=== PATIENT | male | born 1935 | race Caucasian/White ===

== ENCOUNTER 2017-05-01 16:28 | Inpatient (IN) | payer OTHER ==
[~2017-05-01] VITALS: Ht 167.6 cm; Wt 69.2 kg
--- NOTE | 2017-05-01 16:45 | ED EYE COMPLAINT ---
History of Present Illness General Chief Complaint: Eye Problems Stated Complaint: SIB EYE DOCTOR FOR BIOPSY Source: patient, family Exam Limitations: no limitations Vital Signs & Intake/Output Vital Signs & Intake/Output Vital Signs Date Time Temp Pulse Resp B/P B/P Pulse O2 O2 Flow FiO2 Mean Ox Delivery Rate 05/10 2202 97.5 102 20 130/70 95 05/10 1411 97.7 100 20 148/60 95 Room Air 05/10 0701 97.7 85 20 142/72 95 Room Air ED Intake and Output 05/11 0000 05/10 1200 Intake Total 1100 250 Output Total 600 Balance 500 250 Intake, IV 10 Intake, Oral 1100 240 Output, Urine 600 Allergies Coded Allergies: No Known Allergies (04/16/17) Reconcile Medications Benzonatate 100 MG CAPSULE 1-2 CAP PO Q4 COUGH (Reported) Citalopram Hydrobromide (Citalopram HBr) 10 MG TABLET 1 TAB PO DAILY MENTAL HEALTH (Reported) Ibuprofen 600 MG TABLET 1 TAB PO TID PAIN CONTROL (Reported) with food Melatonin/Pyridoxine (Melatonin 5 MG Tablet) 5 MG-1 MG TABLET SLEEP HELP ( Reported) Omeprazole 20 MG CAPSULE.DR 1 CAP PO DAILY GI (Reported) Triage Note: 81 YEAR OLD MALE SENT TO ER FOR ADMISSION FOR TEMPORAL ARTERIE BIOPSY, PER SISTER N LAW PT HAS BEEN COMPLAINING OF TRENT FOR THE PAST 2 MONTHS, HE HAD AN APPOINTMENT WITH EYE DR MATTHEWS AND THEY NOTED THAT HE COULD NOT SEE OUT OF THE EYE AND STTAED THAT THEY FEEL HE HAD A STROKE IN HIS EYE, PT WAS REFERRED TO ANOTHER EYE SPEACIALIST THE SAME DAY AND THEY COMFIRMED IT , AND REFERRED HIM TO ANOTHER SPEACIALIST WHICH THEY SAW TODAY. PT HAS A HISTORY OF DEMENTIA AND PER DR PAUL WHO CALLED AHEAD, STATES THAT SHE FEELS PT HAS TEMPORAL ARTERITIS AMD NEEDS PROMPT TESTING. PT WAS MEDICATED AT THE OFFICE WITH 100 MG PO PREDNISONE . Triage Nurses Notes Reviewed? yes Onset: Gradual Duration: 2 MONTHS WORSE X FEW WEEKS Timing: recent history Injury Environment: home Severity: moderate, severe No Modifying Factors: none Right Eye Associated Symptoms: pain, decreased vision HPI: This is a 81 year old very pleasant male with history of dementia per his sister in law who presents to the ER for admission for surgical biopsy to rule out temporal arteritis. Per the [id number] he has been having issues with his eyes and pain in the neck for the last several weeks but then started having pain over his left forehead and side of face. He was worked up with outpatient x-rays to rule out cervical pathology for his symptoms. 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 He was seen by the paste up worker today who stated he had an inflamed eye and sent him here for admission. He has a history of dementia and has been ataxic at home. Multiple falls. He was given a PO dose of steroids in the office and sent in with a request of high dose IV steroids. Past History Travel History Traveled to [place] past 21 day No Medical History Any Pertinent Medical History? 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 No Review of Systems Review of Systems Constitutional: Denies: chills, fever. Eyes: Reports: blurred vision. Ear: Reports: no symptoms. Nose: Reports: no symptoms. Mouth: Reports: no symptoms. Throat: Reports: no symptoms. Respiratory: Denies: cough, short of breath. Cardiovascular: Denies: chest pain. GI: Reports: no symptoms. Genitourinary: Reports: no symptoms. Musculoskeletal: Reports: no symptoms. Skin: Reports: no symptoms. Neurological/Psychological: Reports: ataxia, headache. Hematologic/Endocrine: Denies: bruising, bleeding, polyuria, polydipsia. Immunologic/Allergic: Reports: no symptoms. All Other Systems: Reviewed and Negative Physical Exam General Appearance: well developed/nourished, mild distress General Inspection: dilated pupil Eyelid: normal inspection Conjunctiva/Sclera: normal inspection Cornea: normal inspection EOM: intact Pupil: pupil size in mm (8) General Inspection: normal inspection Eyelid: normal inspection Conjunctiva/Sclera: normal inspection Cornea: normal inspection EOM: intact Pupil: pupil size in mm (8) Anterior Chamber: normal inspection Physical Exam Head: atraumatic Nose: normal inspection Mouth/Throat: normal mouth inspection Neck: normal inspection, supple Cardiovascular/Respiratory: normal breath sounds, regular rate/rhythm Neurologic/Psych: awake, alert, oriented x 3, normal mood/affect Skin: intact, normal color, warm/dry Progress Differential Diagnosis: temporal arteritis, CVA, cataract Plan of Care: Orders Procedure Date/time Status Patient Safety Monitor 05/10 09 Active Current Medications Sig/Gloria Start time Last Medication Dose Stop Time Status Admin Quetiapine Fumarate 12.5 MG AT BEDTIME 05/08 2200 AC 05/10 (Seroquel) 211 Cholecalciferol 1,000 IU DAILY 05/08 1000 AC 05/10 (Vitamin D) 0742 Omeprazole 40 MG DAILY AC 05/08 0700 AC 05/10 (Prilosec) 0503 Artificial Tears 2 GTT TID PRN 05/07 1730 AC (Tears Natural) Ibuprofen 600 MG TID PRN 05/07 0951 AC (Motrin) Memantine 5 MG DAILY 05/06 1810 AC 05/10 (Namenda) 0742 Quetiapine Fumarate 25 MG BID 05/06 1000 AC 05/10 (Seroquel) 2117 Bisacodyl 5 MG DAILY NEEDED PRN 05/06 0145 AC 05/06 (Dulcolax) 0828 Polyethylene Glycol 17 GM DAILY NEEDED PRN 05/06 0145 AC 05/07 (Miralax) 0937 Prednisone 60 MG DAILY 05/05 1000 AC 05/10 0742 Melatonin 5 MG AT BEDTIME 05/03 2200 AC 05/10 (Melatonin) 2117 Artificial Tears 2 GTT 4 TIMES/DAY PRN 05/03 2100 AC 05/08 (Tears Natural) 1601 Heparin Sodium 5,000 UNIT Q8 05/02 2245 AC 05/11 (Porcine) 0528 Benzonatate 100 MG TID 05/01 2200 AC 05/10 (Tessalon Capsule) 2116 Citalopram 10 MG DAILY 05/01 1934 AC 05/10 Hydrobromide 0741 (Celexa) Departure Departure Time of Disposition: 1703 Disposition: STILL A PATIENT Condition: Stable Clinical Impression Primary Impression: Temporal arteritis Referrals: Selma Hahn MD (PCP/Family) Departure Forms: Customer Survey General Discharge Information Admission Note Spoke With: Willie Fuller MD Documentation of Exam: Documentation of any treatments & extenuating circumstances including Concerns Regarding Discharge (functional status, medication knowledge or non-compliance, living conditions, etc.) that warrant an admission rather than observation: [IV SOLUMEDROL 1 GM DAILY, TEMPORAL ARTERY BIOPSY SURGICAL CONSULT DR ROGER HOWELL, OPTHALMOLOGY CONSULTATION, CASE MANAGEMTN. 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
[2017-05-01 17:12] LABS: ABSOLUTE BASOPHIL COUNT 0 /CUMM (0.0-0.2); ABSOLUTE EOSINOPHIL COUNT 0.1 /CUMM (0.0-0.7); ABSOLUTE GRANULOCYTE CT 10.9 /CUMM (1.4-6.5); ABSOLUTE MONOCYTE COUNT 0.9 /CUMM (0.10-0.60); BASOPHIL % 0.1 % (0.0-2.0); GRANULOCYTE % 78.5 % (42.2-75.2); MEAN CORPUSCULAR HGB CONC 31.7 G/DL (33.0-37.0); MEAN CORPUSCULAR VOLUME 78.8 FL (80.0-94.0); MEAN PLATELET VOLUME 6.8 FL (7.4-10.4); PLATELET COUNT 589 /CUMM (130-400); RBC DISTRIBUTION WIDTH 13.6 % (11.5-14.5); WHITE BLOOD CELL COUNT 13.9 /CUMM (4.8-10.8)
--- NOTE | 2017-05-01 17:13 | History & Physical ---
Val Culver MD 05/01/17 1711: General Information and HPI MD Statement: I have seen and personally examined KRISTIN GREENE and documented this H&P. The patient is a 81 year old M who presented with a patient stated chief complaint of [sent by eye doctor]. Source of Information: family, EMS Exam Limitations: unable to give history, dementia, language barrier History of Present Illness: Patient is a 81-year-old male with past medical history of dementia, GERD, anxiety presented to [facility] after being sent by Dr. Hayes for concerns of temporal arteritis after coordinating care with Dr. Hahn. Patient is demented and unable to provide history, most of the history is provided by family member. Patient has been experiencing headache frontal, occipital extending to the shoulders for the past 2 months. He was evaluated with cervical x-rays considered secondary to arthritis and started on ibuprofen. For the past 1 week he started closing one of his eyes as mentioned by the family member. As he was taken to an event specialist it is evident that he is blind on his right eye. He was referred to another event specialist assuming it is stroke where the findings were similar and sent to [facility] for lab work. He is also referred to a neuro-event specialist. He was not able to go for the past 2 days due to bad whether. Today he went neuro-event specialist Dr. Hayes where there is a concern for temporal arteritis was raised. A single dose of 1000 mg oral prednisone was given in the office. PCP was called who coordinated to send him to [place] for IV methylprednisone. Review of systems - he did have decreased appetite with weight loss around 9LB recently. He had dry cough for which he was evaluated by chest CT. Allergies/Medications Allergies: Coded Allergies: No Known Allergies (04/16/17) Home Med list Benzonatate 100 MG CAPSULE 1-2 CAP PO Q4 COUGH (Reported) Citalopram Hydrobromide (Citalopram HBr) 10 MG TABLET 1 TAB PO DAILY MENTAL HEALTH (Reported) Ibuprofen 600 MG TABLET 1 TAB PO TID PAIN CONTROL (Reported) with food Melatonin/Pyridoxine (Melatonin 5 MG Tablet) 5 MG-1 MG TABLET SLEEP HELP ( Reported) Omeprazole 20 MG CAPSULE.DR 1 CAP PO DAILY GI (Reported) Compliance With Home Meds: FAIR Past History Travel History Traveled to [place] past 21 day No Medical History Neurological: dementia EENT: NONE Cardiovascular: NONE Respiratory: NONE Gastrointestinal: NONE Hepatic: NONE Renal: NONE Musculoskeletal: ARTHRITIS Psychiatric: NONE Endocrine: NONE Blood Disorders: NONE Cancer(s): NONE 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 Home Who Do You Live With? self Services at Home: None Smoking Status: Former Smoker ETOH Use: denies use Illicit Drug Use: denies illicit drug use Functional Ability ADLs Independent: dressing, eating, toileting, bathing. Ambulation: independent IADLs Independent: shopping, housework, finances, food prep, telephone, transportation , medication admin. Review of Systems Review of Systems Constitutional: Reports: see HPI, weakness, unexplained weight loss. EENTM: Reports: see HPI, blurred vision, visual changes. Cardiovascular: Reports: see HPI. Respiratory: Reports: see HPI. GI: Reports: see HPI. Exam & Diagnostic Data Last 24 Hrs of Vital Signs/I&O Vital Signs Date Time Temp Pulse Resp B/P B/P Pulse O2 O2 Flow FiO2 Mean Ox Delivery Rate 05/01 1649 86 18 140/77 97 Room Air 05/01 1632 95.8 88 20 126/77 96 Room Air Physical Exam General Appearance Alert, Cooperative, No Acute Distress Skin No Rashes, No Breakdown HEENT Atraumatic, PERRLA, EOMI Neck Supple Cardiovascular Normal S1, Normal S2, No Murmurs Lungs Clear to Auscultation, Normal Air Movement Abdomen Normal Bowel Sounds, Soft, No Tenderness Neurological Normal Gait, Normal Speech, Strength at 5/5 X4 Ext, Normal Tone Extremities No Clubbing, No Cyanosis, No Edema Assessment/Plan Assessment: Patient is elderly 81-year-old male with past medical history of dementia, cataracts, GERD, anxiety presented to [facility] with concerns of temporal arteritis after evaluation by neuroophthalmologist () given his recent right eye visual loss followed by visual changes in his left eye along with headaches for the past 2 months. He did have weight loss with decreased appetite without any fevers. He is evaluated by a today where he received 1 g prednisone by mouth in the office and sent for IV steroids and temporal biopsy. Vital signs at time of presentation afebrile heart rate 88, blood pressure 126/77 mmHg, saturating well on room air. Physical examination is unremarkable except for complete loss of vision on the right eye and preservation on the left eye. Heart S1-S2 normal, clear lungs, normal abdominal bowel sounds. Prominent JVD. Labs did show white count of 13.9, H&H 10.5/33, MCV 78, platelet count 589. ESR 125 Chem panel sodium 131, chloride 92, BUN/ creatinine ratio 53, glucose 118, alkaline phosphatase 137, CK pending. Differential Temporal arteritis Polymyalgia rheumatica Primary angiitis of GUARD CHIEF Admitted to general medicine floor Plan Possible giant cell arteritis Visual loss on right eye, headache for the past 2 months, Elevated ESR --appears temporal arteritis until proven otherwise. Given the acuity of visual loss, it is imperative to start the patient on steroids for the benefit of doubt and preservation of vision in the remaining eye. * started on 1 g IV steroids daily. * Scheduled to go to biopsy of temporal artery. * Nothing by mouth from midnight. * CPK level is low * Consider ultrasound of temporal artery if warranted. * Consulted general surgery Dr. Coon for biopsy -- Informed that he can do biopsy if OR schedule is flexible on no other emergent surgery otherwise he would postpone till Thursday. Dementia Patient is not able to provide history. Stays on his own, frequently visits family near by. Medication didnt contain any medications for dementia. In the claim history it shows donepezil recently given by . * Family reports they didnt pick from pharmacy yet. * Continue donepezil at discharge. History of GERD Continue omeprazole History of anxiety Continue escitalopram 10 mg daily History of dry cough He was evaluated by CT chest for concerns of weight loss, shortness of breath. CT chest did show pulmonary nodule of 3 mm nodule in the right lower lobe. Pleural obliques suggestive of possible asbestos exposure. Needs follow-up with chest CT early. * Continue Tessalon Pearls DVT prophylaxis Alps CODE STATUS DNR/DNI Son is POA. As Ranked By This Provider Problem List: 1. Leukocytosis 2. Temporal arteritis Core Measures/Misc (11/09) Acute Coronary Syndrome ACS Diagnosis: No Congestive Heart Failure Congestive Heart Failure Diagnosis No Cerebrovascular Accident CVA/TIA Diagnosis: No VTE (View Protocol) VTE Risk Factors Acute Medical Illness No Mechanical VTE Prophylaxis d/t Surgical Contraindication No VTE Pharm Prophylaxis d/t Surgical Contraindication Sepsis (View protocol) Sepsis Present: No Willie Fuller MD 05/01/17 0448: Attending MD Review Statement Attending Statement Attending MD Statement: examined this patient, discuss w/resident/PA/AUDIT MGR, agreed w/resident/PA/AUDIT MGR, reviewed EMR data (avail) Attending Assessment/Plan: Presentation consistent with temporal arteritis. Will start Solumedrol 1g/day, CPK level, surgery consult for biopsy, ophthalmology consult, continue home medications, rheumatology consult, continue home meds, DVT PPx
[2017-05-01 17:23] LABS: PT 15.1 SEC (9.4-12.5); PTT 31 SEC (25-37)
[2017-05-01] MEDS ORDERED: OMEPRAZOLE20 M2 PO (18:56)
[2017-05-01] MEDS ORDERED: IBUPROFEN600 M1 PO (18:57)
[2017-05-01] MEDS ORDERED: MELATONIN 5 MG1 EACH (18:57)
[2017-05-01] MEDS ORDERED: BENZONATATE100 M1 PO (18:57)
[2017-05-01] MEDS ORDERED: CITALOPRAM HBR10 MG PO (18:58)
[2017-05-01 19:31] VITALS: BP 142/74
[2017-05-01 23:13] VITALS: BP 118/71
[2017-05-02 06:46] VITALS: BP 150/76
--- NOTE | 2017-05-02 08:16 | PN- Housestaff ---
Jerson PRESTON,Wilfred 05/02/17 0815: Subjective Follow-up For: Right eye vision loss, suspected temporal arteritis Subjective: Patient was seen and examined at bedside. He is resting comfortably. He is no longer complaining of a headache, and currently has no complaints. He endorses jaw claudication with chewing but has been nothing by mouth since coming to the hospital does not have pain when clenching his jaw currently. He denies any chest pain, shortness of breath, nausea, vomiting, fever, chills. His family is at bedside and their questions were answered. His reported that last night he had return of vision of his right eye for a brief period. Review of Systems Constitutional: Denies: chills, fever. EENTM: Reports: visual changes. Denies: eye pain. Cardiovascular: Denies: chest pain, palpitations. Respiratory: Denies: cough, short of breath. Gastrointestinal: Reports: no symptoms. Genitourinary: Reports: no symptoms. Musculoskeletal: Reports: no symptoms. Neurological/Psychological: Denies: headache. Objective Last 24 Hrs of Vital Signs/I&O Vital Signs Date Time Temp Pulse Resp B/P B/P Pulse O2 O2 Flow FiO2 Mean Ox Delivery Rate 05/02 0646 97.3 86 16 150/76 95 Room Air 05/01 2313 97.3 91 16 118/71 94 Room Air 05/01 1931 97.9 84 16 142/74 95 Room Air 05/01 1846 96.2 83 18 127/64 94 Room Air 05/01 1649 86 18 140/77 97 Room Air 05/01 1632 95.8 88 20 126/77 96 Room Air Intake & Output 05/02 1600 05/02 0800 05/02 0000 Intake Total 600 750 Output Total 625 Balance -25 750 Intake, IV 600 150 Intake, Oral 600 Output, Urine 625 Patient 163 lb Weight Weight Reported by Patient Measurement Method Physical Exam General Appearance: Alert, Oriented X3, Cooperative, No Acute Distress Skin Temp/Moisture Exam: Warm/Dry HEENT: Atraumatic, R pupil not reactive to light, hx of cataracts, Minimal TTP of the R samaritan Neck: No JVD, +2 Carotid Pulse wo Bruit Cardiovascular: Regular Rate, Normal S1, Normal S2 Lungs: Clear to Auscultation, Normal Air Movement Abdomen: Normal Bowel Sounds, Soft, No Tenderness Neurological: Normal Speech, Normal Tone, Sensation Intact, minimal vision of the R eye, can make out colors Extremities: No Clubbing, No Cyanosis, No Edema Current Medications: Current Medications Sig/Gloria Start time Last Medication Dose Route Stop Time Status Admin Benzonatate 100 MG TID 05/01 2199 AC 05/01 PO 2117 Citalopram 10 MG DAILY 05/01 1933 AC 05/01 Hydrobromide PO 2033 Ibuprofen 600 MG TID 05/01 2199 AC 05/01 PO 2118 Methylprednisolone 1,000 MG DAILY 05/02 1000 AC Dextrose/Water 1,000 ML IV Omeprazole 20 MG DAILY 05/01 1933 DC 05/01 PO 2033 Pantoprazole Sodium 40 MG DAILY 05/02 1000 AC IV Sodium Chloride 1,000 ML Q13H 05/02 1999 AC 05/01 IV 05/02 0859 2033 Last 24 Hrs of Lab/Brayan Results Last 24 Hrs of Labs/Mics: Laboratory Tests 05/02/17 0720: Sodium Pending, Potassium Pending, Chloride Pending, Carbon Dioxide Pending, Anion Gap Pending, BUN Pending, Creatinine Pending, BUN/Creatinine Ratio Pending , CBC w Diff Pending, WBC Pending, RBC Pending, Hgb Pending, Hct Pending, MCV Pending, MCH Pending, MCHC Pending, RDW Pending, Plt Count Pending, MPV Pending 05/01/17 2340: Urine Color STRAW, Urine Clarity CLEAR, Urine pH 6.5, Ur Specific [place] <= 1.005, Urine Protein NEG, Urine Ketones NEG, Urine Nitrite NEG, Urine Bilirubin NEG, Urine Urobilinogen 0.2, Ur Leukocyte Esterase NEG, Ur Microscopic EXAM NOT REQUIRED, Urine Hemoglobin NEG, Urine Glucose NEG 05/01/17 1702: Anion Gap 11, Estimated GFR > 60, BUN/Creatinine Ratio 33.3 H, Glucose 118 H, Calcium 8.7, Iron 19 L, TIBC 197 L, Ferritin 838.0 H, Total Bilirubin 0.5, AST 40, ALT 53, Alkaline Phosphatase 137 H, Creatine Kinase < 20 L, Total Protein 6.2 L, Albumin 2.9 L, Globulin 3.3, Albumin/Globulin Ratio 0.9 L, PT 15.1 H, INR 1.38 H, APTT 31, CBC w Diff NO MAN DIFF REQ, RBC 4.20 L, MCV 78.8 L, MCH 25.0 L, MCHC 31.7 L, RDW 13.6, MPV 6.8 L, Gran % 78.5 H, Lymphocytes % 14.1 L, Monocytes % 6.3, Eosinophils % 1.0, Basophils % 0.1, Absolute Granulocytes 10.9 H, Absolute Lymphocytes 2.0, Absolute Monocytes 0.9 H, Absolute Eosinophils 0.1, Absolute Basophils 0, ESR Westergren 125 H Assessment/Plan Assessment: Patient is a 81-year-old male with a PMH significant for dementia, cataracts, GERD, anxiety who presented to [facility] with right eye vision loss and concerns of temporal arteritis. He was sent in by his neuro-donor services manager, Dr. Hayes. He received 1 g prednisone as an outpatient. He has been having a several week history of headache and eye pain with recent onset of right eye visual loss. He is on is elevated at 125 WBC on admission was elevated at 13.9. #Vision loss of right eye, with associated headaches This likely represents temporal arteritis however differential includes diabetic vision loss. We are currently treating for temporal arteritis until it is ruled out by biopsy. -Gen. surgery, Dr. Coon, has been consulted for biopsy, plan is to take patient for biopsy on Thursday, he will be nothing by mouth starting midnight on Thursday -Continue with 1 g IV steroids daily -Ophthalmology and rheumatology consults will be placed today, spoke with the answering service of Dr. Nguyen, and Dr. Beltran. - follow up hgb A1c #Chronic medical problems including dementia, anxiety, GERD, OA -Continue home medications -Patient has seen Dr. Carcamo as an outpatient for dementia and was prescribed on Donepezil which he had not started taking, he was started on this admission and will recommend continuation upon discharge. Diet: Regular DVT ppx: SC heparin, ALPS Code status: DNR/DNI Problem List: 1. Temporal arteritis Pain Ratin Pain Location: currently no pain Pain Goal: Remain pain free Pain Plan: pain pathway Tomorrow's Labs & Rationales: cbc, bep Katlyn Howard 05/02/17 1003: Attending MD Review Statement Attending Statement Attending MD Statement: examined this patient, discuss w/resident/PA/BUSINESS CONTINUITY GLOBAL DIRECTOR, agreed w/resident/PA/BUSINESS CONTINUITY GLOBAL DIRECTOR, discussed with family, reviewed EMR data (avail), discussed with nursing, discussed with case mgmt, reviewed images, amended to note Attending Assessment/Plan: Presentation consistent with temporal arteritis. Continue high dose steroids, Surgery consulted for biopsy, ophthalmology consult, continue home medications, rheumatology consult i/p vs o/p, continue home meds, DVT PPx
[2017-05-02 08:49] LABS: ABSOLUTE BASOPHIL COUNT 0 /CUMM (0.0-0.2); ABSOLUTE EOSINOPHIL COUNT 0 /CUMM (0.0-0.7); ABSOLUTE GRANULOCYTE CT 6.5 /CUMM (1.4-6.5); ABSOLUTE LYMPH COUNT 1.5 /CUMM (1.2-3.4); ABSOLUTE MONOCYTE COUNT 0.5 /CUMM (0.10-0.60); BASOPHIL % 0.3 % (0.0-2.0); EOSINOPHIL % 0 % (0-5); GRANULOCYTE % 76.3 % (42.2-75.2); HEMATOCRIT 29.9 % (42-52); MEAN CORPUSCULAR HGB 25.5 PG (27.0-31.0); MEAN CORPUSCULAR HGB CONC 32.4 G/DL (33.0-37.0); MEAN CORPUSCULAR VOLUME 78.9 FL (80.0-94.0); MEAN PLATELET VOLUME 7.1 FL (7.4-10.4); PLATELET COUNT 597 /CUMM (130-400); RBC DISTRIBUTION WIDTH 13.6 % (11.5-14.5); RED BLOOD CELL CT 3.78 /CUMM (4.70-6.10); WHITE BLOOD CELL COUNT 8.6 /CUMM (4.8-10.8)
--- NOTE | 2017-05-02 11:49 | PN- General Surgery ---
Surgical Brief Attending Note Brief Attending Note: Patient to be seen. There is an abundance of surgical emergencies today that take priority. PLan for temportal artery biopsy Thursday.
[2017-05-02 14:17] VITALS: BP 157/84
[2017-05-02 22:19] VITALS: BP 160/100
[2017-05-02 22:30] VITALS: BP 152/86
[2017-05-03 06:45] VITALS: BP 144/76
--- NOTE | 2017-05-03 08:31 | PN- Housestaff ---
Nadeen PRESTON,[facility] 05/03/17 0831: Subjective Follow-up For: vision loss in right eye Subjective: Patient was seen and examined at bedside. feels okay. offers no complaints. Review of Systems Constitutional: Reports: no symptoms. Objective Last 24 Hrs of Vital Signs/I&O Vital Signs Date Time Temp Pulse Resp B/P B/P Pulse O2 O2 Flow FiO2 Mean Ox Delivery Rate 05/03 0645 97.6 90 16 144/76 96 Room Air 05/02 2230 88 152/86 05/02 2219 97.1 102 18 160/100 97 Room Air 05/02 1417 97.8 90 20 157/84 96 Intake & Output 05/03 1600 05/03 0800 05/03 0000 Intake Total 480 480 Output Total 350 Balance 130 480 Intake, Oral 480 480 Output, Urine 350 Patient 147 lb Weight Weight Bed scale Measurement Method Physical Exam General Appearance: Alert, Oriented X3, Cooperative, No Acute Distress Skin: No Rashes, No Breakdown Skin Temp/Moisture Exam: Warm/Dry Sepsis Skin Exam (color): Normal for Ethnicity HEENT: Atraumatic Cardiovascular: Normal S1, Normal S2, No Murmurs Lungs: Clear to Auscultation, Normal Air Movement Abdomen: Soft, No Tenderness Neurological: Normal Speech, absent light reflex on right. Extremities: No Edema Assessment/Plan Assessment: Patient is a 81-year-old male with a PMH significant for dementia, cataracts, GERD, anxiety who presented to [facility] with right eye vision loss and concerns of temporal arteritis. He was sent in by his neuro-skiver blockers, Dr. Hayes. He received 1 g prednisone as an outpatient. He has been having a several week history of headache and eye pain with recent onset of right eye visual loss. #Vision loss of right eye, with associated headaches * suspected temporal arteritis * continue IV steroids 1g daily * to be evaluated by opthalmology and rheumatology tomorrow * NPO at midnight for biopsy specimen to be obtained tomorrow. * His HbA1c is 6.2. Vision loss is unlikely due to diabetes. #Chronic medical problems including dementia, anxiety, GERD, OA -Continue home medications -Patient has seen Dr. Carcamo as an outpatient for dementia and was prescribed on Donepezil which he had not started taking, he was started on this admission and will recommend continuation upon discharge. Diet: Regular DVT ppx: SC heparin, ALPS Code status: DNR/DNI Problem List: 1. Leukocytosis Pain Ratin Pain Location: none Pain Goal: Remain pain free Pain Plan: none Tomorrow's Labs & Rationales: CBC, BEP Katlyn Howard 05/03/17 1050: Attending MD Review Statement Attending Statement Attending MD Statement: examined this patient, discuss w/resident/PA/EMPLOYEE COUNSELOR, agreed w/resident/PA/EMPLOYEE COUNSELOR, discussed with family, reviewed EMR data (avail), discussed with nursing, discussed with case mgmt, reviewed images, amended to note Attending Assessment/Plan: Presentation consistent with temporal arteritis. Continue high dose steroids, Surgery consulted for biopsy NPO past MN, ophthalmology consult as o/p (cataract ), continue home medications, rheumatology aware, will follow tomorrow. Hba1c 6.2. continue home meds, DVT PPx
[2017-05-03 08:47] LABS: ABSOLUTE BASOPHIL COUNT 0 /CUMM (0.0-0.2); ABSOLUTE EOSINOPHIL COUNT 0 /CUMM (0.0-0.7); ABSOLUTE GRANULOCYTE CT 10.6 /CUMM (1.4-6.5); ABSOLUTE LYMPH COUNT 1.6 /CUMM (1.2-3.4); ABSOLUTE MONOCYTE COUNT 0.2 /CUMM (0.10-0.60); BASOPHIL % 0.2 % (0.0-2.0); EOSINOPHIL % 0 % (0-5); GRANULOCYTE % 85.5 % (42.2-75.2); HEMATOCRIT 28.2 % (42-52); MEAN CORPUSCULAR HGB 25.7 PG (27.0-31.0); MEAN CORPUSCULAR HGB CONC 32.8 G/DL (33.0-37.0); MEAN CORPUSCULAR VOLUME 78.5 FL (80.0-94.0); MEAN PLATELET VOLUME 7.2 FL (7.4-10.4); PLATELET COUNT 581 /CUMM (130-400); RBC DISTRIBUTION WIDTH 13.7 % (11.5-14.5)
[2017-05-03 09:15] LABS: WHITE BLOOD CELL COUNT 12.4 /CUMM (4.8-10.8)
[2017-05-03 13:58] VITALS: BP 124/69
--- NOTE | 2017-05-03 15:44 | Cons- General Surgery ---
General Information and HPI Consulting Request Date of Consult: 05/03/17 Requested By: Willie Fuller MD History of Present Illness: Request for temporal artery biopsy. History gleaned from his [id number]-fi-ebj. Patient has new right-sided eye blindness. He was seen by neuro ophthalmology and there is concern about arteritis as etiology. Complains of headache prior to the onset with prominent temporal vessels. Allergies/Medications Allergies: Coded Allergies: No Known Allergies (04/16/17) Home Med List: Benzonatate 100 MG CAPSULE 1-2 CAP PO Q4 COUGH (Reported) Citalopram Hydrobromide (Citalopram HBr) 10 MG TABLET 1 TAB PO DAILY MENTAL HEALTH (Reported) Ibuprofen 600 MG TABLET 1 TAB PO TID PAIN CONTROL (Reported) with food Melatonin/Pyridoxine (Melatonin 5 MG Tablet) 5 MG-1 MG TABLET SLEEP HELP ( Reported) Omeprazole 20 MG CAPSULE.DR 1 CAP PO DAILY GI (Reported) Current Medications: Current Medications Sig/Gloria Start time Last Medication Dose Route Stop Time Status Admin Benzonatate 100 MG TID 05/01 2200 AC 05/03 PO 1013 Citalopram 10 MG DAILY 05/01 1934 AC 05/03 Hydrobromide PO 1013 Heparin Sodium 5,000 UNIT Q8 05/02 2245 AC 05/03 (Porcine) SC 1354 Ibuprofen 600 MG TID 05/01 2200 AC 05/03 PO 1012 Methylprednisolone 1,000 MG DAILY 05/02 1000 AC 05/03 Dextrose/Water 1,000 ML IV 1012 Pantoprazole Sodium 40 MG DAILY 05/02 1000 AC 05/03 IV 1013 Past History Medical History Blood Transfusion Hx: No Neurological: dementia EENT: NONE Cardiovascular: NONE Respiratory: NONE Gastrointestinal: NONE Hepatic: NONE Renal: NONE Musculoskeletal: ARTHRITIS Psychiatric: NONE Endocrine: NONE Blood Disorders: NONE Cancer(s): NONE NIGHT GUARD/Reproductive: NONE Surgical History Pertinent Surgical History: appendectomy, knee replacement Psychosocial History Where Do You Live? Home Who Do You Live With? self Services at Home: None Smoking Status: Former Smoker ETOH Use: denies use Illicit Drug Use: denies illicit drug use Functional Ability ADLs Independent: dressing, eating, toileting, bathing. Ambulation: independent IADLs Independent: shopping, housework, finances, food prep, telephone, transportation , medication admin. Review of Systems Review of Systems: No chest pain no dyspnea, headaches present. Exam & Diagnostic Data Vital Signs and I&O Vital Signs Date Time Temp Pulse Resp B/P B/P Pulse O2 O2 Flow FiO2 Mean Ox Delivery Rate 05/03 1358 97.4 77 18 124/69 97 05/03 0645 97.6 90 16 144/76 96 Room Air 05/02 2230 88 152/86 05/02 2219 97.1 102 18 160/100 97 Room Air Intake & Output 05/03 1600 05/03 0800 05/03 0000 05/02 1600 05/02 0800 05/02 0000 Intake Total 480 799 562 4930 600 750 Output Total 350 625 Balance 480 468 331 0963 -25 750 Intake, IV 1300 600 150 Intake, Oral 480 480 480 240 600 Number 0 0 Bowel Movements Output, Urine 350 625 Patient 147 lb 163 lb Weight Weight Bed scale Reported by Patient Measurement Method Physical Exam: Gen.: Looks his stated age no distress. HEENT: Prominent right-sided temporal vessels. Nontender. Extremities: No cyanosis clubbing or edema Last 24 Hours of Labs: Laboratory Tests 05/04 0645 Chemistry Sodium (137 - 145 mmol/L) 140 Potassium (3.5 - 5.1 mmol/L) 4.3 Chloride (98 - 107 mmol/L) 100 Carbon Dioxide (22 - 30 mmol/L) 28 Anion Gap (5 - 16) 12 BUN (9 - 20 mg/dL) 21 H Creatinine (0.7 - 1.2 mg/dL) 0.8 Estimated GFR (>60 ml/min) > 60 BUN/Creatinine Ratio (7 - 25 %) 26.3 H Hematology CBC w Diff NO MAN DIFF REQ WBC (4.8 - 10.8 /CUMM) 10.1 RBC (4.70 - 6.10 /CUMM) 3.81 L Hgb (14.0 - 18.0 G/DL) 9.8 L Hct (42 - 52 %) 30.1 L MCV (80.0 - 94.0 FL) 78.9 L MCH (27.0 - 31.0 PG) 25.8 L MCHC (33.0 - 37.0 G/DL) 32.7 L RDW (11.5 - 14.5 %) 13.6 Plt Count (130 - 400 /CUMM) 648 H MPV (7.4 - 10.4 FL) 7.2 L Gran % (42.2 - 75.2 %) 85.5 H Lymphocytes % (20.5 - 51.1 %) 11.8 L Monocytes % (1.7 - 9.3 %) 2.7 Eosinophils % (0 - 5 %) 0 Basophils % (0.0 - 2.0 %) 0 Absolute Granulocytes (1.4 - 6.5 /CUMM) 8.6 H Absolute Lymphocytes (1.2 - 3.4 /CUMM) 1.2 Absolute Monocytes (0.10 - 0.60 /CUMM) 0.3 Absolute Eosinophils (0.0 - 0.7 /CUMM) 0 Absolute Basophils (0.0 - 0.2 /CUMM) 0 Assessment/Plan Assessment/Plan All right eye blindness. concern for temporal/giant cell arteritis. plan right temporal artery biopsy tomorrow ~1pm. Consult Acknowledgment - Thank you for your consult request.
[2017-05-03 22:10] VITALS: BP 130/74
[2017-05-04 06:12] VITALS: BP 156/84
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
--- NOTE | 2017-05-04 08:45 | Cons- Rheumatology ---
General Information and HPI Consulting Request Date of Consult: 05/04/17 Requested By: Katlyn Howard MD Reason for Consult: Suspicion of temporal arteritis Source of Information: old records Exam Limitations: dementia, poor historian History of Present Illness: This is a 81-year-old male with a history of dementia who was admitted to the hospital on May 01 3 days ago with a suspicion by his cleaning supervisor of temporal arteritis. He has been having headaches for at least 2 months as documented by a CAT scan of his head on April 16. Apparently was determined by the cleaning supervisor that the patient lost his vision in his right eye. That combined with a very high sedimentation rate as well as a normochromic normocytic anemia led to suspicion of temporal arteritis and I'm asked to evaluate him from the rheumatology perspective. The patient is drowsy and has dementia and I am unable to obtain any meaningful history such as scalp tenderness jaw claudication or symptoms of polymyalgia rheumatica. Thus far in the hospital his workup consisted of a CT of the head on which revealed temporal volume loss. He is anemic with a hematocrit of 28.2 and a white count of 12,200 but this was after given steroids. His sedimentation rate was 125 on May 01. In the chart it is reported that he was given 100 mg of prednisone in the office by the cleaning supervisor. Thus far his receive 1 g of site Cortef daily since May 02. Allergies/Medications Allergies: Coded Allergies: No Known Allergies (04/16/17) Home Med List: Benzonatate 100 MG CAPSULE 1-2 CAP PO Q4 COUGH (Reported) Citalopram Hydrobromide (Citalopram HBr) 10 MG TABLET 1 TAB PO DAILY MENTAL HEALTH (Reported) Ibuprofen 600 MG TABLET 1 TAB PO TID PAIN CONTROL (Reported) with food Melatonin/Pyridoxine (Melatonin 5 MG Tablet) 5 MG-1 MG TABLET SLEEP HELP ( Reported) Omeprazole 20 MG CAPSULE.DR 1 CAP PO DAILY GI (Reported) Review of Systems Review of Systems: Unobtainable. Past History Travel History Traveled to [place] past 21 day No Medical History Blood Transfusion Hx: No Neurological: dementia EENT: NONE Cardiovascular: NONE Respiratory: NONE Gastrointestinal: NONE Hepatic: NONE Renal: NONE Musculoskeletal: ARTHRITIS Psychiatric: NONE Endocrine: NONE Blood Disorders: NONE Cancer(s): NONE INTERACTIVE GRAPHIC DESIGNER/Reproductive: NONE Surgical History Surgical History: appendectomy, knee replacement Psychosocial History Where Do You Live? Home Who Do You Live With? self Services at Home: None Smoking Status: Former Smoker ETOH Use: denies use Illicit Drug Use: denies illicit drug use Functional Ability ADLs Independent: dressing, eating, toileting, bathing. Ambulation: independent IADLs Independent: shopping, housework, finances, food prep, telephone, transportation , medication admin. Exam & Diagnostic Data Vital Signs and I&O Vital Signs Date Time Temp Pulse Resp B/P B/P Pulse O2 O2 Flow FiO2 Mean Ox Delivery Rate 05/04 0612 97.4 86 20 156/84 94 Room Air 05/03 2210 97.5 74 18 130/74 94 Room Air 05/03 1358 97.4 77 18 124/69 97 Intake & Output 05/04 1600 05/04 0800 05/04 0000 Intake Total 100 480 Output Total 400 Balance -300 480 Intake, Oral 100 480 Output, Urine 400 Patient 153 lb Weight Weight Bed scale Measurement Method Physical Exam: On examination he is a well-developed well-nourished male awake but unable to give much history. On his scalp the temporal artery on the right side does appear somewhat prominent compared to the left. However it is not tender or indurated. Seem in the region. He is unable to follow my command of raising his arms and legs up to tests for proximal muscle stiffness. There is no a cutaneous findings of a vasculitis and all joints exhibit no evidence of an inflammatory arthritis. Assessment/Plan Assessment: Based on the cleaning supervisor report as well as very high sedimentation rate with a normochromic normocytic anemia certainly temporal arteritis is a possibility. The duration of symptoms is hard to elicit. He is undergone a CAT scan of the abdomen and pelvis which is nondiagnostic because of his history of weight loss as well as very high sedimentation rate. Recommendations: I agree with the temporal artery biopsy which is apparently scheduled for this morning. If he is able to take orally I would convert him to prednisone 60 mg daily until the results of the biopsy are received. Consult Acknowledgment - Thank you for your consult request.
[2017-05-04 09:12] LABS: ABSOLUTE BASOPHIL COUNT 0 /CUMM (0.0-0.2); ABSOLUTE EOSINOPHIL COUNT 0 /CUMM (0.0-0.7); ABSOLUTE GRANULOCYTE CT 8.6 /CUMM (1.4-6.5); ABSOLUTE LYMPH COUNT 1.2 /CUMM (1.2-3.4); ABSOLUTE MONOCYTE COUNT 0.3 /CUMM (0.10-0.60); BASOPHIL % 0 % (0.0-2.0); EOSINOPHIL % 0 % (0-5); GRANULOCYTE % 85.5 % (42.2-75.2); HEMATOCRIT 30.1 % (42-52); MEAN CORPUSCULAR HGB 25.8 PG (27.0-31.0); MEAN CORPUSCULAR HGB CONC 32.7 G/DL (33.0-37.0); MEAN CORPUSCULAR VOLUME 78.9 FL (80.0-94.0); MEAN PLATELET VOLUME 7.2 FL (7.4-10.4); PLATELET COUNT 648 /CUMM (130-400); RBC DISTRIBUTION WIDTH 13.6 % (11.5-14.5); RED BLOOD CELL CT 3.81 /CUMM (4.70-6.10); WHITE BLOOD CELL COUNT 10.1 /CUMM (4.8-10.8)
--- NOTE | 2017-05-04 14:43 | Operative Report ---
Operative/Inv Procedure Report Surgery Date: 05/04/17 Name of Procedure: Right temporal artery biopsy Pre-Operative Diagnosis: Temporal arteritis Post-Operative Diagnosis: Same Estimated Blood Loss: scant Surgeon/Garment Parts Cutter Hand: Dawood Coon M.D. Anesthesia: local monitored anesthesi Specimens: Temporal artery Operative Indication: Patient with new right eye blindness concern for giant cell arteritis Operative/Procedure Note Note: Patient brought to the operative room and laid supine his right temporal area was then prepped and draped. The skin was infiltrated with local anesthesia and a longitudinal incision made sharply. We came through subcutaneous tissues tissues with cautery. The investing fascia was incised sharply and artery identified. Confirmation with Doppler ultrasound was performed. A 1 cm section of the artery was then dissected sharply. It was then divided between clamps and the specimen passed off the field. The cut ends were suture ligated with 3- 0 silk sutures. The incision was then closed in 2 layers of 3-0 and 4-0 Vicryl sutures. Sterile dressing was applied. CC: Selma PRESTON,Selma
[2017-05-04 15:15] VITALS: BP 156/84
[2017-05-04 22:03] VITALS: BP 115/60
[2017-05-05 06:01] VITALS: BP 100/60
--- NOTE | 2017-05-05 07:05 | PN- Housestaff ---
Karly PRESTON,Colette 05/05/17 0705: Subjective Follow-up For: Temporal arteritis right side Complaints: no complaints Subjective: Patient seen and examined at bedside. His [id number] was at the bedside. Patient is alert, awake, oriented 1 not agitated. He is not in acute distress. Overnight patient was agitated and required Haldol and Zyprexa. He denies headache, vision change, weakness, numbness, tingling sensation, chest pain, shortness of breath. Review of Systems Constitutional: Reports: no symptoms. Cardiovascular: Reports: no symptoms. Respiratory: Reports: no symptoms. Gastrointestinal: Reports: no symptoms. Genitourinary: Reports: no symptoms. Objective Last 24 Hrs of Vital Signs/I&O Vital Signs Date Time Temp Pulse Resp B/P B/P Pulse O2 O2 Flow FiO2 Mean Ox Delivery Rate 05/05 0601 97.5 63 20 100/60 92 Room Air 05/04 2203 97.5 73 20 115/60 95 05/04 1940 96 Room Air 05/04 1600 Nasal 3.0L Cannula 05/04 1515 98.1 68 18 156/84 93 Nasal 3.0L Cannula Intake & Output 05/05 1600 05/05 0800 05/05 0000 Intake Total 600 Output Total Balance 600 Intake, Oral 600 Patient 153 lb Weight Physical Exam General Appearance: Alert, Cooperative, No Acute Distress Skin: No Rashes, No Breakdown HEENT: Atraumatic, PERRLA Neck: Supple, No JVD, No thryomegaly Cardiovascular: Regular Rate, Normal S1, Normal S2 Lungs: Clear to Auscultation Abdomen: Normal Bowel Sounds, Soft Neurological: Normal Speech, RIGHT EYE DECREASED VISION COMPARED TO THE LEFT.NO PAINFUL EYE MOVEMENTS. nO REDNESS OR TENDERNESS. Current Medications: Current Medications Sig/Gloria Start time Last Medication Dose Route Stop Time Status Admin Artificial Tears 2 GTT 4 TIMES/DAY PRN 05/03 2100 AC OPH Benzonatate 100 MG TID 05/01 2199 AC 05/05 PO 923 Citalopram 10 MG DAILY 05/01 193 AC 05/05 Hydrobromide PO 923 Fentanyl Citrate 100 MCG .STK-MED ONE 05/04 1244 DC IM 05/04 1245 Haloperidol 1 MG ONCE ONE 05/04 2330 DC 05/04 IM 05/04 2331 2336 Heparin Sodium 5,000 UNIT Q8 05/02 2245 AC 05/05 (Porcine) SC 0641 Ibuprofen 600 MG TID 05/01 2200 AC 05/05 PO 0924 Lorazepam 1 MG ONE PRN 05/04 0945 DC IV 05/04 1545 Melatonin 5 MG AT BEDTIME 05/03 2200 AC 05/04 PO 2003 Midazolam HCl 2 MG .STK-MED ONE 05/04 1244 DC IM 05/04 1245 Olanzapine 10 MG ONCE ONE 05/05 0230 DC 05/05 IM 05/05 0231 0246 Pantoprazole Sodium 40 MG DAILY 05/02 1000 AC 05/05 IV 0924 Prednisone 60 MG DAILY 05/05 1000 AC 05/05 PO 0924 Last 24 Hrs of Lab/Brayan Results Last 24 Hrs of Labs/Mics: Laboratory Tests 05/05/17 0800: Anion Gap 7, Estimated GFR > 60, BUN/Creatinine Ratio 38.6 H, CBC w Diff NO MAN DIFF REQ, RBC 3.71 L, MCV 78.1 L, MCH 25.7 L, MCHC 32.9 L, RDW 13.9, MPV 6.7 L, Gran % 77.7 H, Lymphocytes % 16.4 L, Monocytes % 5.7, Eosinophils % 0, Basophils % 0.2, Absolute Granulocytes 10.1 H, Absolute Lymphocytes 2.1, Absolute Monocytes 0.7 H, Absolute Eosinophils 0, Absolute Basophils 0 Assessment/Plan Assessment: Patient is a 81-year-old male with a PMH significant for dementia, cataracts, GERD, anxiety who presented to [facility] with right eye vision loss and concerns of temporal arteritis. He was sent in by his neuro-tire recapping machine operator, Dr. Hayes. He received 1 g prednisone as an outpatient. He has been having a several week history of headache and eye pain with recent onset of right eye visual loss. Assessment and plan 1. Right EYE suspected temporal arteritis-patient had a temporal artery biopsy yesterday. Awaiting biopsy results. Patient was on IV steroids which was converted to by mouth prednisone 60 mg today as per rheumatology. Patient will be followed by ophthalmology and rheumatology. Patient also, has complaints of bilateral hip pain which could be a comment of polymyalgia rheumatica which needs further investigation. 2. Delirium At baseline patient has dementia. Patient during this hospital admission was delirious overnight can be a competent of owning/high-dose of steroids. Patient received Haldol and Zyprexa for the same. Patient is not on any restraints. We will continue follow him. 3. Dementia Patient is on Cady as prescribed by Dr. Carcamo and we will continue the same. Code-DNR/DNI Diet-regular diet Problem List: 1. Temporal arteritis Pain Ratin Pain Location: NONE Pain Goal: Remain pain free Pain Plan: Steroids, ibuprofen Tomorrow's Labs & Rationales: CBC Katlyn Howard 05/05/17 1106: Attending MD Review Statement Attending Statement Attending MD Statement: examined this patient, discuss w/resident/PA/MANAGER COUNTRY, agreed w/resident/PA/MANAGER COUNTRY, discussed with family, reviewed EMR data (avail), discussed with nursing, discussed with case mgmt, reviewed images, amended to note Attending Assessment/Plan: Presentation consistent with temporal arteritis. Rheum appreciated, Continue high dose steroids, Surgery consulted for biopsy s/p biopsy 05/04/17. Ophthalmology consult as o/p (cataract), continue home medications, rheumatology appreciated and steroids as per rheum, Hba1c 6.2. Provide supportive care for dementia and agitation. continue home meds, DVT PPx
[2017-05-05 08:44] LABS: ABSOLUTE BASOPHIL COUNT 0 /CUMM (0.0-0.2); ABSOLUTE EOSINOPHIL COUNT 0 /CUMM (0.0-0.7); ABSOLUTE GRANULOCYTE CT 10.1 /CUMM (1.4-6.5); ABSOLUTE LYMPH COUNT 2.1 /CUMM (1.2-3.4); ABSOLUTE MONOCYTE COUNT 0.7 /CUMM (0.10-0.60); BASOPHIL % 0.2 % (0.0-2.0); EOSINOPHIL % 0 % (0-5); GRANULOCYTE % 77.7 % (42.2-75.2); MEAN CORPUSCULAR HGB 25.7 PG (27.0-31.0); MEAN CORPUSCULAR HGB CONC 32.9 G/DL (33.0-37.0); MEAN CORPUSCULAR VOLUME 78.1 FL (80.0-94.0); MEAN PLATELET VOLUME 6.7 FL (7.4-10.4); PLATELET COUNT 615 /CUMM (130-400); RBC DISTRIBUTION WIDTH 13.9 % (11.5-14.5); RED BLOOD CELL CT 3.71 /CUMM (4.70-6.10); WHITE BLOOD CELL COUNT 12.9 /CUMM (4.8-10.8)
[2017-05-05 14:14] VITALS: BP 112/72
--- NOTE | 2017-05-05 22:31 | Event Note ---
Event Note Event Note: For the 3rd consecutive night we have been dealing with sever agitation/ delerium. The other day patient was out of his bed going to other patients room, he was attempting unsafe ambulation and severly confused. Patient has been receiving halodol and zyprexa over the last 2 days, tonight he also became agitated and we gave one dose of halodol. Patient needs psych evaluation at am. His agitation/delerium need to be adressed at am.
[2017-05-05 22:48] VITALS: BP 156/74
[2017-05-06 06:27] VITALS: BP 132/70
--- NOTE | 2017-05-06 07:11 | PN- Housestaff ---
Karly PRESTON,Colette 05/06/17 0710: Subjective Follow-up For: temporal arteritis Complaints: no complaints Subjective: Patient seen at bedside. Patient is sleeping and couldn't offer any complaints. Review of Systems Constitutional: Reports: no symptoms. Comments: Patient is sleeping. Couldn't get any history from him today. Objective Last 24 Hrs of Vital Signs/I&O Vital Signs Date Time Temp Pulse Resp B/P B/P Pulse O2 O2 Flow FiO2 Mean Ox Delivery Rate 05/06 06 98.1 69 18 132/70 96 Room Air 05/05 2248 97.6 78 20 156/74 95 Room Air 05/05 1703 Room Air 3.0L 05/05 1414 97.5 95 18 112/72 92 Room Air Intake & Output 05/06 1600 05/06 0800 05/06 0000 Intake Total 50 100 Output Total Balance 50 100 Intake, Oral 50 100 Physical Exam General Appearance: Alert, Cooperative, No Acute Distress HEENT: Atraumatic, PERRLA Neck: Supple, No JVD, No thryomegaly Cardiovascular: Regular Rate, Normal S1, Normal S2 Lungs: Clear to Auscultation Abdomen: Soft, No Tenderness Neurological: Strength at 5/5 X4 Ext, Sensation Intact Extremities: No Edema, Normal Pulses Current Medications: Current Medications Sig/Gloria Start time Last Medication Dose Route Stop Time Status Admin Artificial Tears 2 GTT 4 TIMES/DAY PRN 05/03 2100 AC OPH Benzonatate 100 MG TID 05/01 2199 AC 05/06 PO 0828 Bisacodyl 5 MG DAILY NEEDED PRN 05/06 0145 AC 05/06 PO 0828 Citalopram 10 MG DAILY 05/01 193 AC 05/06 Hydrobromide PO 0830 Haloperidol 1 MG ONCE ONE 05/05 2229 DC 05/05 IM 05/05 2230 223 Heparin Sodium 5,000 UNIT Q8 05/02 224 AC 05/06 (Porcine) SC 0541 Ibuprofen 600 MG TID 05/01 2199 AC 05/05 PO 210 Melatonin 5 MG AT BEDTIME 05/03 2199 AC 05/05 PO 210 Pantoprazole Sodium 40 MG DAILY 05/02 1000 AC 05/06 IV 0830 Polyethylene Glycol 17 GM DAILY NEEDED PRN 05/06 0145 AC PO Prednisone 60 MG DAILY 05/05 1000 AC 05/06 PO 0828 Last 24 Hrs of Lab/Brayan Results Last 24 Hrs of Labs/Mics: Laboratory Tests 05/06/17 0750: CBC w Diff Pending, WBC Pending, RBC Pending, Hgb Pending, Hct Pending, MCV Pending, MCH Pending, MCHC Pending, RDW Pending, Plt Count Pending, MPV Pending Lines/Diet/Fluids Restraints: none Assessment/Plan Assessment: Patient is a 81-year-old male with a PMH significant for dementia, cataracts, GERD, anxiety who presented to [facility] with right eye vision loss and concerns of temporal arteritis. He was sent in by his neuro-fagot heater, Dr. Hayes. He received 1 g prednisone as an outpatient. He has been having a several week history of headache and eye pain with recent onset of right eye visual loss. Assessment and plan 1. Right EYE suspected temporal arteritis-patient had a temporal artery biopsy yesterday. Awaiting biopsy results. Patient was on IV steroids which was converted to by mouth prednisone 60 mg today as per rheumatology. Patient will be followed by ophthalmology and rheumatology. Patient also, has complaints of bilateral hip pain which could be a comment of polymyalgia rheumatica which needs further investigation. 2. Delirium At baseline patient has dementia. Patient during this hospital admission was delirious overnight can be a competent of ing/high-dose of steroids. Patient received Haldol and Zyprexa for the same. Patient is not on any restraints. He will sen by psych today. 3. Dementia Patient is on donepezil as prescribed by Dr. Carcamo and we will continue the same.Pt lives alone and the family is concerned about the need for placement. Pt is independant at baseline. WE will ask PT and Case management to have alook and giude us with dischege disposition. Code-DNR/DNI Diet-regular diet Problem List: 1. Temporal arteritis Pain Ratin Pain Location: none Pain Goal: Remain pain free Pain Plan: tylenol Tomorrow's Labs & Rationales: cbc,bep AnitaKatlyn fierro 05/06/17 1139: Attending Review Statement Attending Statement Attending MD Statement: examined this patient, discuss w/resident/PA/CASH RECONCILIATION SPECIALIST, agreed w/resident/PA/CASH RECONCILIATION SPECIALIST, discussed with family, reviewed EMR data (avail), discussed with nursing, discussed with case mgmt, reviewed images, amended to note Attending Assessment/Plan: Presentation consistent with temporal arteritis. Continue high dose steroids, Surgery consulted for biopsy s/p biopsy 05/04/17 f/u biopsy results. Ophthalmology consult as o/p (cataract +vision loss), continue home medications, rheumatology appreciated and steroids as per rheum, Hba1c 6.2. Provide supportive care for dementia and agitation. Not on restraints. Independnet walking to bathroom. Case management/SW consult to assess home situation. continue home meds, DVT PPx.
[2017-05-06 09:01] LABS: ABSOLUTE BASOPHIL COUNT 0 /CUMM (0.0-0.2); ABSOLUTE EOSINOPHIL COUNT 0 /CUMM (0.0-0.7); ABSOLUTE GRANULOCYTE CT 10.3 /CUMM (1.4-6.5); ABSOLUTE LYMPH COUNT 3.1 /CUMM (1.2-3.4); ABSOLUTE MONOCYTE COUNT 0.7 /CUMM (0.10-0.60); BASOPHIL % 0.3 % (0.0-2.0); EOSINOPHIL % 0.3 % (0-5); GRANULOCYTE % 72.4 % (42.2-75.2); HEMATOCRIT 31.6 % (42-52); MEAN CORPUSCULAR HGB 25.9 PG (27.0-31.0); MEAN CORPUSCULAR VOLUME 78.4 FL (80.0-94.0); PLATELET COUNT 626 /CUMM (130-400); RBC DISTRIBUTION WIDTH 13.8 % (11.5-14.5); RED BLOOD CELL CT 4.04 /CUMM (4.70-6.10); WHITE BLOOD CELL COUNT 14.3 /CUMM (4.8-10.8)
[2017-05-06 15:24] VITALS: BP 120/62
--- NOTE | 2017-05-06 17:09 | Cons- Psychiatry ---
Psychiatric Consult Date of Consult: 05/06/17 Reason for Consult: dementia/sundowning Allergies: Coded Allergies: No Known Allergies (04/16/17) Past History Past Medical History Neurological: dementia EENT: NONE Cardiovascular: NONE Respiratory: NONE Gastrointestinal: NONE Hepatic: NONE Renal: NONE Musculoskeletal: ARTHRITIS Psychiatric: NONE Endocrine: NONE Blood Disorders: NONE Cancer(s): NONE PHYSICAL MEDICINE TEACHER/Reproductive: NONE Past Surgical History Surgical History: appendectomy, knee replacement Assessment/Plan Impression: Patient is a 81-year-old male with a PMH significant for dementia, cataracts, GERD, anxiety who presented to [facility] with right eye vision loss and concerns of temporal arteritis. He has been treated with steroids, biopsy pending. Pt is pleasant and lucid on exam with obvious memory impairment when asked certain questions. He is alert and oriented to person and place. Attempted MMSE but he could not finish whole test. Year 2001, season summer. Could not name town or months. did name pen and ring. Could not read close your eyes but statesw he cannot read. He scored quite low. He is in no pain and is not paranoid about his medical care. Reports spirits are good, no depression. No suicidal ideation. Reports he is here for his eye and shows me biopsy site. Nursing reports he is becoming confused and combative late afternoon to night. Received 1 mg haldol. On donepezil per Dr. Carcamo. MSE Elderly gentleman in bed in [facility] in [facility]. Pleasant and appropriate not agitated no motor abnormalities. Speech [place] accent, hard to understand at times but he is answering questions with relevant answers and knows when he does not know answer. Mood good Affect euthymic Tp linear TC answers questions I/J appropriate for his level of cognitive impairment Current Medications Sig/Gloria Start time Last Medication Dose Route Stop Time Status Admin Artificial Tears 2 GTT 4 TIMES/DAY PRN 05/03 2100 AC OPH Benzonatate 100 MG TID 05/01 2200 AC 05/06 PO 0828 Bisacodyl 5 MG DAILY NEEDED PRN 05/06 0145 AC 05/06 PO 0828 Citalopram 10 MG DAILY 05/01 1934 AC 05/06 Hydrobromide PO 0830 Haloperidol 1 MG ONCE ONE 05/05 223 DC 05/05 IM 05/05 2231 223 Heparin Sodium 5,000 UNIT Q8 05/02 2245 AC 05/06 (Porcine) SC 1324 Ibuprofen 600 MG TID 05/010 AC 05/05 PO 210 Melatonin 5 MG AT BEDTIME 05/030 AC 05/05 PO 210 Pantoprazole Sodium 40 MG DAILY 05/02 1000 AC 05/06 IV 0830 Polyethylene Glycol 17 GM DAILY NEEDED PRN 05/06 0145 AC PO Prednisone 60 MG DAILY 05/05 1000 AC 05/06 PO 0828 Quetiapine Fumarate 25 MG BID 05/06 1000 AC 05/06 PO 1324 81 yo M with dementia and ? temporal arteritis who is becoming agitated at night. -Steroids can cause mental status changes. He appeared well on my exam. -Would add memantine given his low MMSE score start 5 mg qdaily. Renally cleared. Sensitive to urine pH. If he tolerates I will titrate up. -Check EKG and QTc: choose one antipsychotic and use low dose for agitation. He is already on 25 mg BID of seroquel would also use seroquel for agitation if this is to be continued. Can use 12.5-25 mg BID as a prn. Would suggest not using multiple antipsychotic medications. If QTc prolonged use abilify 2.5 mg BID and 2.5 mg prn re agitation. -Frequent reorientation -Avoid benzos -If not obtained TSH, B12, Vit D, folate, LFTs Thank you for this consult. Celsa Morataya MD #[id number]
[2017-05-06 22:21] VITALS: BP 132/70
[2017-05-07 06:28] VITALS: BP 148/76
--- NOTE | 2017-05-07 07:53 | PN- Housestaff ---
Karly PRESTON,Colette 05/07/17 0753: Subjective Follow-up For: Temporal arteritis Complaints: no complaints Subjective: Patient was seen and examined at bedside. He was sitting in his bed comfortably. No overnight events. He appears more alert and oriented. He offers no complaints. He denies chest pain, shortness of breath, headache, weakness, numbness. Review of Systems Constitutional: Reports: no symptoms. Cardiovascular: Reports: no symptoms. Respiratory: Reports: no symptoms. Gastrointestinal: Reports: no symptoms. Genitourinary: Reports: no symptoms. Musculoskeletal: Reports: no symptoms. Objective Last 24 Hrs of Vital Signs/I&O Vital Signs Date Time Temp Pulse Resp B/P B/P Pulse O2 O2 Flow FiO2 Mean Ox Delivery Rate 05/07 06 97.9 77 18 148/76 94 Room Air 05/06 2221 98.3 91 19 132/70 93 Room Air 05/06 1524 97.5 109 19 120/62 94 Room Air 05/06 1107 Room Air 3.0L 05/06 1058 Room Air 3.0L 05/06 1044 Room Air 3.0L Intake & Output 05/07 1600 05/07 0800 05/07 0000 Intake Total 0 800 Output Total Balance 0 800 Intake, IV 0 Intake, Oral 0 800 Number 0 Bowel Movements Physical Exam General Appearance: Alert, Oriented X3, Cooperative HEENT: Atraumatic, Right eye- Neck: Supple, No JVD Cardiovascular: Regular Rate, Normal S1, Normal S2 Lungs: Clear to Auscultation Abdomen: Normal Bowel Sounds, Soft, No Tenderness Neurological: Strength at 5/5 X4 Ext, Normal Tone, Sensation Intact Current Medications: Current Medications Sig/Gloria Start time Last Medication Dose Route Stop Time Status Admin Artificial Tears 2 GTT 4 TIMES/DAY PRN 05/03 2100 AC OPH Benzonatate 100 MG TID 05/01 2199 AC 05/06 PO 220 Bisacodyl 5 MG DAILY NEEDED PRN 05/06 0145 AC 05/06 PO 0828 Citalopram 10 MG DAILY 05/01 193 AC 05/06 Hydrobromide PO 08 Heparin Sodium 5,000 UNIT Q8 05/02 2245 AC 05/07 (Porcine) SC 0536 Ibuprofen 600 MG TID 05/01 2199 AC 05/06 PO 2205 Melatonin 5 MG AT BEDTIME 05/03 2199 AC 05/06 PO 2206 Memantine 5 MG DAILY 05/06 1810 AC 05/06 PO 2034 Pantoprazole Sodium 40 MG DAILY 05/02 1000 AC 05/06 IV 0830 Polyethylene Glycol 17 GM DAILY NEEDED PRN 05/06 0145 AC PO Prednisone 60 MG DAILY 05/05 1000 AC 05/06 PO 0828 Quetiapine Fumarate 25 MG BID 05/06 1000 AC 05/06 PO 2206 Last 24 Hrs of Lab/Brayan Results Last 24 Hrs of Labs/Mics: Laboratory Tests 05/07/17 0747: Sodium Pending, Potassium Pending, Chloride Pending, Carbon Dioxide Pending, Anion Gap Pending, BUN Pending, Creatinine Pending, BUN/Creatinine Ratio Pending , Total Bilirubin Pending, Direct Bilirubin Pending, AST Pending, ALT Pending, Alkaline Phosphatase Pending, Total Protein Pending, Albumin Pending, Vitamin B12 Pending, 25-OH Vitamin D Total Pending, Folate Pending, TSH Pending, Thyroxine (T4) Pending, CBC w Diff Pending, WBC Pending, RBC Pending, Hgb Pending, Hct Pending, MCV Pending, MCH Pending, MCHC Pending, RDW Pending, Plt Count Pending, MPV Pending, ESR Westergren Pending Lines/Diet/Fluids Restraints: sitter Assessment/Plan Assessment: Patient is a 81-year-old male with a PMH significant for dementia, cataracts, GERD, anxiety who presented to [facility] with right eye vision loss and concerns of temporal arteritis. He was sent in by his neuro-senior living sales counselor, Dr. Hayes. He received 1 g prednisone as an outpatient. He has been having a several week history of headache and eye pain with recent onset of right eye visual loss. Assessment and plan 1. Right EYE suspected temporal arteritis-patient had a temporal artery biopsy done. Awaiting biopsy results. Patient was on IV steroids which was converted to by mouth prednisone 60 mg today as per rheumatology. Patient will be followed by ophthalmology and rheumatology. We spoke to Dr. Nguyen over the phone who suggested to continue prednisone 60 mg daily and follow up with him as outpatient within 1-2 weeks. Patient also, has complaints of bilateral hip pain which could be a comment of polymyalgia rheumatica which needs further investigation. 2. Delirium At baseline patient has dementia. Patient during this hospital admission was delirious overnight can be a competent of sundowning/high-dose of steroids. Patient received Haldol and Zyprexa for the same. Patient was seen by psychiatry who suggested to add Namenda and Seroquel if the patient is agitated. Patient is not on any restraints. He will be followed by psych today. 3. Dementia Patient is on donepezil as prescribed by Dr. Carcamo and we will continue the same.Pt lives alone and the family is concerned about the need for placement. Pt is independant at baseline. Case management for long-term placement Code-DNR/DNI Diet-regular diet Problem List: 1. Temporal arteritis Pain Ratin Pain Location: none Pain Goal: Remain pain free Pain Plan: tylenol Tomorrow's Labs & Rationales: none Josué Vasquez MD 05/07/17 2004: Attending MD Review Statement Attending Statement Attending MD Statement: examined this patient, discuss w/resident/PA/SCREW MACHINE SET UP OPERATOR, agreed w/resident/PA/SCREW MACHINE SET UP OPERATOR, discussed with family, reviewed EMR data (avail), discussed with nursing, discussed with case mgmt, amended to note Attending Assessment/Plan: The patient was seen and discussed with house staff. Mental status improved on medications. Appreciate Psychiatry and Neurology input. Will check preliminary report of temporal artery biopsy and continue Prednisone as per temporal arteritis protocol. Case management looking at solutions for care.
[2017-05-07 09:10] LABS: ABSOLUTE BASOPHIL COUNT 0 /CUMM (0.0-0.2); ABSOLUTE EOSINOPHIL COUNT 0.1 /CUMM (0.0-0.7); ABSOLUTE GRANULOCYTE CT 12.8 /CUMM (1.4-6.5); ABSOLUTE MONOCYTE COUNT 0.7 /CUMM (0.10-0.60); BASOPHIL % 0.3 % (0.0-2.0); EOSINOPHIL % 0.7 % (0-5); GRANULOCYTE % 72.4 % (42.2-75.2); HEMATOCRIT 34.9 % (42-52); MEAN CORPUSCULAR HGB 25.5 PG (27.0-31.0); MEAN CORPUSCULAR HGB CONC 32.2 G/DL (33.0-37.0); MEAN CORPUSCULAR VOLUME 79.2 FL (80.0-94.0); MEAN PLATELET VOLUME 7.4 FL (7.4-10.4); PLATELET COUNT 706 /CUMM (130-400); RED BLOOD CELL CT 4.41 /CUMM (4.70-6.10); WHITE BLOOD CELL COUNT 17.7 /CUMM (4.8-10.8)
[2017-05-07 13:43] VITALS: BP 120/68
[2017-05-07 22:05] VITALS: BP 140/74
[2017-05-08 06:30] VITALS: BP 158/80
--- NOTE | 2017-05-08 07:27 | PN- Housestaff ---
Subjective Follow-up For: Delirium, giant cell arteritis Complaints: no complaints Subjective: Patient was seen and examined at bedside. He was sitting in his bed comfortably. He appears to be alert, oriented 2, able to follow commands. Overnight patient became much agitated and hence was put on restraints and Vernon. Now he soft restraints. He has a one-on-one sitter by the bedside. He denies any headache, nausea, vomiting, weakness, tingling sensation. Review of Systems Constitutional: Reports: no symptoms. Cardiovascular: Reports: no symptoms. Respiratory: Reports: no symptoms. Gastrointestinal: Reports: no symptoms. Genitourinary: Reports: no symptoms. Objective Last 24 Hrs of Vital Signs/I&O Vital Signs Date Time Temp Pulse Resp B/P B/P Pulse O2 O2 Flow FiO2 Mean Ox Delivery Rate 05/08 0630 98.6 80 20 158/80 95 Room Air 05/07 2205 98.1 84 20 140/74 95 Room Air 05/07 1343 96.8 100 20 120/68 92 Room Air 05/07 0938 Room Air 3.0L 05/07 0927 Room Air 3.0L Intake & Output 05/08 1600 05/08 0800 05/08 0000 Intake Total 210 800 Output Total 225 500 Balance -225 -290 800 Intake, IV 10 Intake, Oral 200 800 Output, Urine 225 500 Physical Exam General Appearance: Alert, Cooperative, No Acute Distress, oriented 2 Skin: No Rashes, No Breakdown Cardiovascular: Regular Rate, Normal S1, Normal S2, No Murmurs Lungs: Clear to Auscultation, Normal Air Movement Abdomen: Normal Bowel Sounds, Soft, No Tenderness Neurological: Normal Gait, Normal Speech, Strength at 5/5 X4 Ext, Normal Tone, Sensation Intact Extremities: Normal Pulses Current Medications: Current Medications Sig/Gloria Start time Last Medication Dose Route Stop Time Status Admin Artificial Tears 2 GTT TID PRN 05/07 1730 AC OPH Artificial Tears 2 GTT 4 TIMES/DAY PRN 05/03 2100 AC OPH Benzonatate 100 MG TID 05/01 2199 AC 05/07 PO 205 Bisacodyl 5 MG DAILY NEEDED PRN 05/06 0145 AC 05/06 PO 0828 Cholecalciferol 1,000 IU DAILY 05/08 1000 AC PO Citalopram 10 MG DAILY 05/01 193 AC 05/07 Hydrobromide PO 0937 Heparin Sodium 5,000 UNIT Q8 05/02 2245 AC 05/08 (Porcine) SC 0623 Ibuprofen 600 MG TID PRN 05/07 0951 AC PO Ibuprofen 600 MG TID 05/01 2200 DC 05/06 PO 2206 Melatonin 5 MG AT BEDTIME 05/03 2200 AC 05/07 PO 205 Memantine 5 MG DAILY 05/06 1810 AC 05/07 PO 0937 Omeprazole 40 MG DAILY AC 05/08 0700 AC 05/08 PO 0620 Pantoprazole Sodium 40 MG DAILY 05/02 1000 DC 05/07 IV 0937 Polyethylene Glycol 17 GM DAILY NEEDED PRN 05/06 0145 AC 05/07 PO 0937 Prednisone 60 MG DAILY 05/05 1000 AC 05/07 PO 0937 Quetiapine Fumarate 25 MG BID 05/06 1000 AC 05/07 PO 2049 Lines/Diet/Fluids Restraints: Vernon Assessment/Plan Assessment: Patient is a 81-year-old male with a PMH significant for dementia, cataracts, GERD, anxiety who presented to [facility] with right eye vision loss and concerns of temporal arteritis. He was sent in by his neuro-assistant director of plant operations, Dr. Hayes. He received 1 g prednisone as an outpatient. He has been having a several week history of headache and eye pain with recent onset of right eye visual loss. Assessment and plan 1. Right EYE- temporal arteritis-patient had a temporal artery biopsy done. Preliminary report confirms gentle arthritis. We will continue prednisone 60 mg daily. Patient will be followed by ophthalmology and rheumatology. Patient also, has complaints of bilateral hip pain which could be a comment of polymyalgia rheumatica which needs further investigation. 2. Delirium At baseline patient has dementia. Patient during this hospital admission was delirious overnight can be a competent of sundowning/high-dose of steroids. Patient received Haldol and Zyprexa for the same. Patient was seen by psychiatry who suggested to add Namenda and Seroquel if the patient is agitated. Patient is on Sharita now. He will be followed by psych today. 3. Dementia Patient is on donepezil as prescribed by Dr. Carcamo and we will continue the same.Pt lives alone and the family is concerned about the need for placement. Pt is independant at baseline. Case management for long-term placement. Code-DNR/DNI Diet-regular diet Problem List: 1. Temporal arteritis Pain Ratin Pain Location: none Pain Goal: Remain pain free Pain Plan: tylenol Tomorrow's Labs & Rationales: none
--- NOTE | 2017-05-08 08:47 | Discharge Summary ---
Visit Information Visit Dates Admission Date: 05/01/17 Discharge Date: 05/12/17 Hospital Course Course Attending Physician: Katlyn Howard MD Primary Care Physician: Selma Hahn MD Consulting Request: 1 Consulting Specialty: Rheumatology Consulting Physician: Dr. Don Nguyen Reason for Consult: Temporal arteritis Consulting Request: 2 Consulting Specialty: General Surgery Consulting Physician: Dr. Dawood Coon Reason for Consult: Temporal artery biopsy Hospital Course: The patient is a 81-year-old man with a past medical history of dementia, GERD, and anxiety who presented to [facility] after being sent in by Neuro- opthalmologist Dr. Hayes for concerns of temporal arteritis after coordinating care with the patient's primary care provider, Dr. Hahn. The patient is demented and unable to provide history, most of the history was provided by family members. The patient had reportedly been experiencing frontal and occipital headaches extending to the shoulders for the preceding 2 months. He was evaluated with cervical x-rays considered secondary to arthritis and started on ibuprofen. For the preceding 1 week he started closing one of his eyes fairly frequently. He was taken to an customer care consultant where it was evident that he was blind in his right eye. He was then referred to another customer care consultant for concerns of a stroke where the findings were similar and he was sent to [facility] for lab work. He was also referred to a neuro- customer care consultant. After seening neuro-customer care consultant Dr. Hayes there was a concern for temporal arteritis. A single dose of 1000 mg oral prednisone was given in his office. His PCP was called who coordinated to send him to [place] for treatment. Vital signs at time of presentation as follows: Temp 95.5 F, heart rate 88/min, blood pressure 126/77 mmHg, saturating well on room air. Physical examination was unremarkable except for complete loss of vision on the right eye and preservation of vision on the left eye. He also had prominent thickened and tender temporal arteries. Significant labs on presentation did show white and elevated white count of 13.9/cumm, Hemoblobin 10.5 g/dl and hematocrit of 33%, MCV was 78 FL, platelet count 589/cumm. ESR was markedly elevated at 125 mm/Hr. Chemistries were notable for a sodium of 131 mmol/L, chloride 92, glucose 118, alkaline phosphatase 137, Creatinine kinase was negative at < 20 U/L. He was admitted and managed for temporal arteritis and started on IV solumedrol 1 gram daily. The patient had a temporal artery biopsy by general surgeon Dr. Coon for which preliminary pathology results revealed to be temporal arteritis. He was reviewed by technical maintenance specialist, Dr. Nguyen and he was started on PO prednisone 60 mg daily. The final biopsy result came back negative for temporal arteritis and showed only artherosclerotic changes. However, because of strong clinical suspicion and his presentation, the decision was made to continue prednisone therapy and for him to follow up with his primary care provider to complete a long prednisone taper. The patient had dementia prior to presentation and had been on donepezil prescribed by neurologist Dr. Carcamo. While on admission, he developed agitation at night and was placed on 25 mg BID of seroquel. He was reviewed by psychiatry and started on namenda and his seroquel dose was increased to 50 mg at night. He was discharged home with his son who is going to take him to [place] and pursue intermediate frame tender placement there. He will have a slow prednisone taper for weeks on discharge. Allergies: Coded Allergies: No Known Allergies (04/16/17) Disposition Summary Disposition Principal Diagnosis: 1. Temporal arteritis 2. Right eye vision loss 3. Dementia with agitation Additional Diagnosis: 4. GERD 5. Anxiety Discharge Disposition: home or self care Discharge Instructions General Discharge Information Code Status: Do Not Resucitate/Intubat Patient's Diet: Regular diet Patient's Activity: Self limited activity Follow-Up Instructions/Appts: 1. Follow up with your primary care provider within 1 week of discharge 2. Follow up with your technical maintenance specialist Dr. Nguyen or any technical maintenance specialist within 1 week of discharge 3. Complete your prednisone taper over the next few months as instructed Medications at Discharge Discharge Medications: Stop taking the following medications: Ibuprofen (Ibuprofen) 600 MG TABLET ORAL THREE TIMES DAILY Qty = 30 Continue taking these medications: Omeprazole (Omeprazole) 20 MG CAPSULE. 1 Capsule ORAL DAILY Qty = 30 Instructions: .. Comments: Last Taken: 05/12/17 Time: 6:45 AM Benzonatate (Benzonatate) 100 MG CAPSULE 1-2 Capsule ORAL Every 4 hours Qty = 30 Instructions: .. Comments: Last Taken: 05/12/17 Time: 6:45AM Melatonin/Pyridoxine (Melatonin 5 MG Tablet) 5 MG-1 MG TABLET Qty = 30 Comments: Last Taken: 05/11/17 Time: 9:30 PM Citalopram Hydrobromide (Citalopram HBr) 10 MG TABLET 1 Tablet ORAL DAILY Qty = 15 Instructions: .. Comments: Last Taken: 05/12/17 Time: 6:45 AM Start taking the following new medications: Quetiapine Fumarate (Quetiapine Fumarate) 25 MG TABLET 25 Milligram ORAL TWICE DAILY Qty = 60 No Refills Instructions: .. Comments: Last Taken: 05/12/17 Time: 6:45AM Quetiapine Fumarate (Quetiapine Fumarate) 25 MG TABLET 12.5 Milligram ORAL AT BEDTIME Qty = 30 No Refills Instructions: .. Comments: Last Taken: 05/11/17 Time: 9:30 PM Memantine HCl (Namenda) 5 MG TABLET 5 Milligram ORAL DAILY Qty = 30 No Refills Instructions: .. Comments: Last Taken: 05/12/17 Time: 6:45AM Bisacodyl (Bisacodyl) 5 MG TABLET.DR 5 Milligram ORAL DAILY NEEDED as needed for CONSTIPATION Qty = 30 No Refills Instructions: .. Comments: Last Taken: 05/06/17 Time: 8:30 AM Prednisone (Prednisone) 20 MG TABLET 10 Milligram ORAL DAILY Qty = 154 No Refills Instructions: PLEASE TAKE 6 PILLS-05/11/2017-05/23/2017 pLEASE TAKE 5 PILLS-05/24/2017-06/22/2017 pLEASE TAKE 4 PILLS-06/23/2017-07/23/2017 pLEASE TAKE 3 PILLS-07/24/2017-08/22/2017 pLEASE TAKE 2 PILLS-08/23/2017-09/22/2017 pLEASE TAKE 1 PILL-09/23/2017-10/22/2017 . . pLEASE TAKE HALF A PILL-10/24/2017-11/07/2017 Comments: PLEASE GET PRESCRIPTION FROM YOUR PRIMARY CARE PHYSICIAN FOR REST OF THE TAPER FOR GIANT CELL ARTERITIS Last Taken: 05/12/17 Time: 6:45 AM Donepezil HCl (Aricept) 5 MG TABLET 1 Tablet ORAL Every night Qty = 30 No Refills Instructions: .. Comments: DID NOT ADMINISTER Copies To: Selma PRESTON,Antoni Nguyen MD,Don J. Attending MD Review Statement Documenting Attending: Katlyn Howard MD Other Findings: Patient needs to follow up with PCP and rhemutalogy at [place] as he is leaving with his son and transition of medical care. Patient/family given instructions alongwith paper prescriptions for steroids. They verbalsied the understanding.
--- NOTE | 2017-05-08 11:46 | PN- Psychiatry ---
Assessment/Plan Impression: Patient seen. Chart and diagnostics reviewed. Patient is a 81-year old [place] male with a medical history of dementia, cataracts, GERD, anxiety who presented to on 05/01/17 with right eye vision loss and concerns of temporal arteritis. Psych consult was placed for management of sundowning/dementia. Dr. Morataya from psychiatry evaluated patient on 05/06/17, at which time recommendations were made for use of a single antipsychotic for agitation. Memantine was also started at 5mg daily. Spoke to patient's RN, who expressed patient had been doing well on Seroquel alone, had demonstrated good behavioral and physical control. Noticed that following first dose of Memantine, patient appeared more confused and agitated. Per chart, patient had been placed in restraints and esequiel overnight given degree of confusion and agitation, Apparently he was not redirectable. It is noted that Abilify 2.5mg BID was additionally started today. On exam, patient presents calm and cooperative. Good behavioral control. No psychomotor retardation or agitation on interview. Speaks softly with strong [place] accent. He is oriented to person and place. States the year is "2007." Does not know the month or day of the week. He endorses "some" depression and anxiety. Unclear of triggers. Reports increased hunger, asks when he will eat lunch. Reports poor sleep but could not recall overnight episode of aggression. Denies passive/active SI, HI, AH and VH. Does not appear to be responding to internal stimuli. Reports energy level is "ok." Mood is "good." Affect full. Thought process linear. Asks this author how his [id number] is doing as he appears to believe that I know her. He is redirectable to answering questions. Suggestion: -Recommend utilizing 1 antipsychotic, preferrably Seroquel and increasing night time dose to 50mg nightly for managment of night time agitation as long as QTc is wnl. Continue Seroquel 25mg daily. Would continue to monitot EKG. -Discontinue Abilify 2.5mg BID. -Continue Namenda 5mg daily. -Frequent reorientation -Avoid benzos Thank you for this consult. Psychiatry will continue to follow. Dennise Baron, [employer] [phone] Subjective Subjective: .
[2017-05-08 13:59] VITALS: BP 118/70
[2017-05-08 22:27] VITALS: BP 132/70
[2017-05-09 07:19] VITALS: BP 120/82
--- NOTE | 2017-05-09 08:16 | PN- Housestaff ---
Colette Brandt MD 05/09/17 0815: Subjective Follow-up For: Giant cell arteritis, delirium Complaints: no complaints Subjective: Patient seen and examined at bedside. No overnight events. He offers no complaints. One-on-one sitter at the bedside. He denies chest pain, headache, nausea, vomiting, diplopia, fever. Review of Systems Constitutional: Reports: no symptoms. Cardiovascular: Reports: no symptoms. Respiratory: Reports: no symptoms. Gastrointestinal: Reports: no symptoms. Genitourinary: Reports: no symptoms. Objective Last 24 Hrs of Vital Signs/I&O Vital Signs Date Time Temp Pulse Resp B/P B/P Pulse O2 O2 Flow FiO2 Mean Ox Delivery Rate 05/09 1402 97.5 100 20 118/70 97 Room Air 05/09 0719 98.7 93 20 120/82 93 Room Air 05/08 2227 97.8 92 20 132/70 93 05/08 1438 Room Air 3.0L Intake & Output 05/09 1600 05/09 0800 05/09 0000 Intake Total 800 400 800 Output Total 400 700 Balance 400 400 100 Intake, Oral 800 400 800 Output, Urine 400 700 Physical Exam General Appearance: Alert, Cooperative, No Acute Distress Cardiovascular: Regular Rate, Normal S1, Normal S2 Lungs: Clear to Auscultation, Normal Air Movement Neurological: Strength at 5/5 X4 Ext, Normal Tone, Sensation Intact Extremities: No Cyanosis, No Edema Current Medications: Current Medications Sig/Gloria Start time Last Medication Dose Route Stop Time Status Admin Aripiprazole 2.5 MG BID 05/08 1000 DC 05/08 PO 1104 Artificial Tears 2 GTT TID PRN 05/07 1730 AC OPH Artificial Tears 2 GTT 4 TIMES/DAY PRN 05/03 2100 AC 05/08 OPH 1601 Benzonatate 100 MG TID 05/01 2200 AC 05/09 PO 0913 Bisacodyl 5 MG DAILY NEEDED PRN 05/06 0145 AC 05/06 PO 0828 Cholecalciferol 1,000 IU DAILY 05/08 1000 AC 05/09 PO 0913 Citalopram 10 MG DAILY 05/01 1934 AC 05/09 Hydrobromide PO 0913 Heparin Sodium 5,000 UNIT Q8 05/02 2245 AC 05/09 (Porcine) SC 0651 Ibuprofen 600 MG TID PRN 05/07 0951 AC PO Melatonin 5 MG AT BEDTIME 05/03 2200 AC 05/08 PO 2054 Memantine 5 MG DAILY 05/06 1810 AC 05/09 PO 0913 Omeprazole 40 MG DAILY AC 05/08 0700 AC 05/09 PO 0652 Polyethylene Glycol 17 GM DAILY NEEDED PRN 05/06 0145 AC 05/07 PO 0937 Prednisone 60 MG DAILY 05/05 1000 AC 05/09 PO 09 Quetiapine Fumarate 12.5 MG AT BEDTIME 05/08 2199 AC 05/08 PO 2054 Quetiapine Fumarate 25 MG BID 05/08 2199 CAN PO Quetiapine Fumarate 25 MG BID 05/06 1000 AC 05/09 PO 0913 Lines/Diet/Fluids Restraints: 1:! sitter Assessment/Plan Assessment: Assessment: Patient is a 81-year-old male with a PMH significant for dementia, cataracts, GERD, anxiety who presented to [facility] with right eye vision loss and concerns of temporal arteritis. He was sent in by his neuro-assurance manager insurance, Dr. Hayes. He received 1 g prednisone as an outpatient. He has been having a several week history of headache and eye pain with recent onset of right eye visual loss. Assessment and plan 1. Right EYE- temporal arteritis-patient had a temporal artery biopsy done. Preliminary report confirms giant cell arthritis. We will continue prednisone 60 mg daily. Patient will be followed by ophthalmology and rheumatology. Patient also, has complaints of bilateral hip pain which could be a comment of polymyalgia rheumatica which needs further investigation though the management is same. Patient has right eye vision light perception only, left 20/25 with glasses 2. Delirium At baseline patient has dementia. Patient during this hospital admission was delirious overnight can be a competent of sundowning/high-dose of steroids. Patient received Haldol and Zyprexa for the same. Patient was seen by psychiatry who suggested to add Namenda and Seroquel if the patient is agitated. She is off restraints and Sharita. He has one-on-one sitter. He will be followed by psychiatry. 3. Dementia Patient is on donepezil and Namenda started at this admission. We will continue the same.Pt lives alone and the family is concerned about the need for placement. Pt is independant at baseline. Case management for long-term placement. I spoke to his son Ruben over the phone and updated about his current medical condition. Code-DNR/DNI Diet-regular diet Problem List: 1. Temporal arteritis Pain Ratin Pain Location: none Pain Goal: Remain pain free Pain Plan: tylenol Tomorrow's Labs & Rationales: none Gutierrez Do MD 05/09/17 1451: Attending MD Review Statement Attending Statement Attending MD Statement: examined this patient, discuss w/resident/PA/CARTOGRAPHIC AIDE, agreed w/resident/PA/CARTOGRAPHIC AIDE, reviewed EMR data (avail), discussed with nursing Attending Assessment/Plan: Mr. Will is a 81-year-old male with a PMH significant for dementia, cataracts , GERD, anxiety who presented to [facility] with right eye vision loss and concerns of temporal arteritis. Assessment and plan 1. Temporal arteritis with right eye involvment-patient had a temporal artery biopsy done. Preliminary report confirms giant cell arthritis. Continue with prednisone 60 mg daily. Duration to be decided after discussion with rheumatology. 2. Delirium Patient had episodes of agitation during hospital stay. Was seen by psychiatry. And was initially on abilify and Seroquel. Abilify has been discontinued. Will continue with Seroquel. Will need frequent reorientation. Continue to hold benzodiazepines. 3. Dementia Case management for long-term placement. Continue with Namenda 5 mg.
[2017-05-09 14:02] VITALS: BP 118/70
[2017-05-09 22:15] VITALS: BP 120/70
[2017-05-10 07:01] VITALS: BP 142/72
--- NOTE | 2017-05-10 07:25 | PN- Housestaff ---
Karly PRESTON,Colette 05/10/17 0725: Subjective Follow-up For: Giant cell arteritis Complaints: no complaints Subjective: Patient was seen and examined at bedside. Patient sitting in his bed comfortably. No overnight events. No more periods of agitation/confusion. He is oriented 2. He says he slept well overnight. He denies headache, weakness, numbness, tingling sensation, chest pain, shortness of breath. Review of Systems Constitutional: Reports: no symptoms. Gastrointestinal: Reports: no symptoms. Genitourinary: Reports: no symptoms. Musculoskeletal: Reports: no symptoms. Skin: Reports: no symptoms. Objective Last 24 Hrs of Vital Signs/I&O Vital Signs Date Time Temp Pulse Resp B/P B/P Pulse O2 O2 Flow FiO2 Mean Ox Delivery Rate 05/10 0701 97.7 85 20 142/72 95 Room Air 05/09 2215 97.9 90 20 120/70 96 05/09 1402 97.5 100 20 118/70 97 Room Air Intake & Output 05/10 1600 05/10 0800 05/10 0000 Intake Total 250 250 Output Total Balance 250 250 Intake, IV 10 10 Intake, Oral 240 240 Physical Exam General Appearance: Alert, No Acute Distress HEENT: Atraumatic, PERRLA Cardiovascular: Regular Rate, Normal S1, Normal S2, No Murmurs Lungs: Clear to Auscultation Abdomen: Normal Bowel Sounds, Soft, No Tenderness, No Hepatospenomegaly Neurological: Strength at 5/5 X4 Ext, Normal Tone, Sensation Intact Extremities: No Cyanosis, No Edema, Normal Pulses Current Medications: Current Medications Sig/Gloria Start time Last Medication Dose Route Stop Time Status Admin Artificial Tears 2 GTT TID PRN 05/07 1730 AC OPH Artificial Tears 2 GTT 4 TIMES/DAY PRN 05/03 2100 AC 05/08 OPH 1601 Benzonatate 100 MG TID 05/01 2200 AC 05/10 PO 0742 Bisacodyl 5 MG DAILY NEEDED PRN 05/06 0145 AC 05/06 PO 0828 Cholecalciferol 1,000 IU DAILY 05/08 1000 AC 05/10 PO 0742 Citalopram 10 MG DAILY 05/01 1934 AC 05/10 Hydrobromide PO 0741 Heparin Sodium 5,000 UNIT Q8 05/02 2245 AC 05/10 (Porcine) SC 0503 Ibuprofen 600 MG TID PRN 05/07 0951 AC PO Melatonin 5 MG AT BEDTIME 05/03 2200 AC 05/09 PO 2017 Memantine 5 MG DAILY 05/06 1810 AC 05/10 PO 0742 Omeprazole 40 MG DAILY AC 05/08 0700 AC 05/10 PO 0503 Polyethylene Glycol 17 GM DAILY NEEDED PRN 05/06 0145 AC 05/07 PO 0937 Prednisone 60 MG DAILY 05/05 1000 AC 05/10 PO 0742 Quetiapine Fumarate 12.5 MG AT BEDTIME 05/08 2200 AC 05/09 PO 2017 Quetiapine Fumarate 25 MG BID 05/06 1000 AC 05/10 PO 0742 Assessment/Plan Assessment: Assessment: Assessment: Patient is a 81-year-old male with a PMH significant for dementia, cataracts, GERD, anxiety who presented to [facility] with right eye vision loss and concerns of temporal arteritis. He was sent in by his neuro-melt down furnace operator, Dr. Hayes. He received 1 g prednisone as an outpatient. He has been having a several week history of headache and eye pain with recent onset of right eye visual loss. Assessment and plan 1. Right EYE- temporal arteritis-patient had a temporal artery biopsy done. Preliminary report confirms giant cell arthritis. We will continue prednisone 60 mg daily. Tapering dose of steroids will be 60 mg for 2 weeks followed by 50 mg for another 2 weeks and 40 mg after that followed by a gradual tapering dose of 10% reduction every 2 weeks from the initial dose. However, Tapering dose of steroids will be discussed with Dr. Nguyen. For now we will continue 60 mg. Patient will be followed by ophthalmology and rheumatology. Patient also, has complaints of bilateral hip pain which could be a comment of polymyalgia rheumatica which needs further investigation though the management is same. Patient has right eye vision light perception only, left 20/25 with glasses 2. Delirium At baseline patient has dementia. Patient during this hospital admission was delirious overnight can be a competent of sundowning/high-dose of steroids. Patient received Haldol and Zyprexa for the same. Patient was seen by psychiatry who suggested to add Namenda and Seroquel if the patient is agitated. She is off restraints and [place]. He has one-on-one sitter. He will be followed by psychiatry. 3. Dementia Patient is on donepezil and Namenda started at this admission. We will continue the same.Pt lives alone and the family is concerned about the need for placement. Pt is independant at baseline. Case management for long-term placement. I spoke to his son Ruben over the phone and updated about his current medical condition. Code-DNR/DNI Diet-regular diet Problem List: 1. Temporal arteritis Pain Ratin Pain Location: none Pain Goal: Remain pain free Pain Plan: tylenol Tomorrow's Labs & Rationales: none Consulting Request: Consulting Specialty: General Surgery Consulting Physician: Dr. Dawood Coon Reason for Consult: Temporal artery biopsy Gutierrez Do MD 05/10/17 1243: Attending MD Review Statement Attending Statement Attending MD Statement: examined this patient, discuss w/resident/PA/AIR QUALITY CONSULTANT, agreed w/resident/PA/AIR QUALITY CONSULTANT, discussed with nursing Attending Assessment/Plan: Mr. Will is a 81-year-old male with a PMH significant for dementia, cataracts , GERD, anxiety who presented to [facility] with right eye vision loss and concerns of temporal arteritis. Assessment and plan 1. Temporal arteritis with right eye involvment-patient had a temporal artery biopsy done. Preliminary report confirms giant cell arthritis. Continue with prednisone 60 mg daily. Duration to be decided after discussion with rheumatology. 2. Delirium: The patient's agitation is better. And was initially on abilify and Seroquel. Abilify has been discontinued. Will continue with Seroquel. Will need frequent reorientation. Continue to hold benzodiazepines. Patient is off restraints and esequiel. 3. Dementia Case management for long-term placement. Continue with Namenda 5 mg.
[2017-05-10 14:11] VITALS: BP 148/60
[2017-05-10 22:02] VITALS: BP 130/70
[2017-05-11 06:46] VITALS: BP 138/72
--- NOTE | 2017-05-11 07:26 | PN- Housestaff ---
Karly PRESTON,Colette 05/11/17 0726: Subjective Follow-up For: Giant cell arteritis Complaints: no complaints Subjective: Patient seen and examined at bedside. No complaints. No overnight events. He denies headache, confusion, chest pain, shortness of breath. Review of Systems Constitutional: Reports: see HPI. Objective Last 24 Hrs of Vital Signs/I&O Vital Signs Date Time Temp Pulse Resp B/P B/P Pulse O2 O2 Flow FiO2 Mean Ox Delivery Rate 05/11 1421 97.5 100 20 130/80 96 Room Air 05/11 0646 97.6 88 20 138/72 95 Room Air 05/10 2202 97.5 102 20 130/70 95 Intake & Output 05/11 1600 05/11 0800 05/11 0000 Intake Total 480 300 300 Output Total Balance 480 300 300 Intake, Oral 480 300 300 Number 0 Bowel Movements Physical Exam General Appearance: Alert, Cooperative, No Acute Distress Cardiovascular: Regular Rate, Normal S1, Normal S2, No Murmurs Lungs: Clear to Auscultation Abdomen: Soft, No Tenderness, No Hepatospenomegaly Neurological: Normal Speech, Strength at 5/5 X4 Ext, Normal Tone, Sensation Intact Extremities: No Cyanosis, No Edema, Normal Pulses Current Medications: Current Medications Sig/Gloria Start time Last Medication Dose Route Stop Time Status Admin Artificial Tears 2 GTT TID PRN 05/07 1730 AC OPH Artificial Tears 2 GTT 4 TIMES/DAY PRN 05/03 2100 AC 05/08 OPH 1601 Benzonatate 100 MG TID 05/01 2200 AC 05/11 PO 1639 Bisacodyl 5 MG DAILY NEEDED PRN 05/06 0145 AC 05/06 PO 0828 Cholecalciferol 1,000 IU DAILY 05/08 1000 AC 05/11 PO 0932 Citalopram 10 MG DAILY 05/01 1934 AC 05/11 Hydrobromide PO 0932 Heparin Sodium 5,000 UNIT Q8 05/02 2245 AC 05/11 (Porcine) SC 1309 Ibuprofen 600 MG TID PRN 05/07 0951 AC PO Lorazepam 0.5 MG ONCE ONE 05/12 0600 AC PO 05/12 0601 Melatonin 5 MG AT BEDTIME 05/03 2200 AC 05/10 PO 2117 Memantine 5 MG DAILY 05/06 1810 AC 05/11 PO 0932 Omeprazole 40 MG DAILY AC 05/08 0700 AC 05/11 PO 0532 Polyethylene Glycol 17 GM DAILY NEEDED PRN 05/06 0145 AC 05/07 PO 0937 Prednisone 60 MG DAILY 05/12 1000 AC PO Prednisone 60 MG DAILY 05/05 1000 DC 05/11 PO 0932 Quetiapine Fumarate 12.5 MG AT BEDTIME 05/08 2200 AC 05/10 PO 2117 Quetiapine Fumarate 25 MG BID 05/06 1000 AC 05/11 PO 0932 Assessment/Plan Assessment: Patient is a 81-year-old male with a PMH significant for dementia, cataracts, GERD, anxiety who presented to [facility] with right eye vision loss and concerns of temporal arteritis. He was sent in by his neuro-sugar refiner, Dr. Hayes. He received 1 g prednisone as an outpatient. He has been having a several week history of headache and eye pain with recent onset of right eye visual loss. Assessment and plan 1. Right EYE- temporal arteritis-patient had a temporal artery biopsy done. Preliminary report confirms giant cell arthritis. We will continue prednisone 60 mg daily. Tapering dose of steroids will be 60 mg for 2 weeks followed by 50 mg for another 4 weeks followed by 10 mg taper every 1 month. Patient will be followed by ophthalmology and rheumatology. Patient also, has complaints of bilateral hip pain which could be a competent of polymyalgia rheumatica which needs further investigation though the management is same. Patient has right eye vision light perception only, left 20/25 with glasses 2. Delirium At baseline patient has dementia. Patient during this hospital admission was delirious overnight can be a competent of sundowning/high-dose of steroids. Patient received Haldol and Zyprexa for the same. Patient was seen by psychiatry who suggested to add Namenda and Seroquel if the patient is agitated. She is off restraints and Esko. He has one-on-one sitter. He will be followed by psychiatry. 3. Dementia Patient is on donepezil and Namenda started at this admission. We will continue the same.Pt lives alone and the family is concerned about the need for placement. Pt is independant at baseline. Case management for long-term placement. I spoke to his son Ruben over the phone and updated about his current medical condition. Code-DNR/DNI Diet-regular diet Update Patient's son Ruben wants to take him to [place] for long-term Placement tomorrow. Hence we will discharge him tomorrow with a referral to her primary care physician and help desk representative. Spoke to the pathologists Dr. Hart regarding his final biopsy report which came as to be chronic changes due to atherosclerosis. Updated attending. Though the biopsy result is negative for Giant cell arteritis, in view of high clinical suspicion we will continue him on steroids. Problem List: 1. Temporal arteritis Pain Ratin Pain Location: None Pain Goal: Remain pain free Pain Plan: Tylenol Tomorrow's Labs & Rationales: None Consulting Request: Consulting Specialty: General Surgery Consulting Physician: Dr. Dawood Coon Reason for Consult: Temporal artery biopsy Katlyn Howard 05/11/17 1142: Attending MD Review Statement Attending Statement Attending MD Statement: examined this patient, discuss w/resident/PA/WEB INTERFACE DEVELOPER, agreed w/resident/PA/WEB INTERFACE DEVELOPER, discussed with family, reviewed EMR data (avail), discussed with nursing, discussed with case mgmt, reviewed images, amended to note Attending Assessment/Plan: The patient was seen and discussed with house staff. Mental status improved on medications. Appreciate Psychiatry and Neurology input. Temporal artery biopsy suggestive of temporal arteritis and continue Prednisone as per temporal arteritis protocol. Case management for dc plannning.
--- NOTE | 2017-05-11 11:50 | Patient Discharge Instructions ---
Discharge Instructions General Discharge Information You were seen/treated for: Giant cell arteritis Watch for these problems: In case of headache, vision changes, nausea, vomiting, chest pain, shortness of breath please go to the nearest emergency room Special Instructions: Please follow with your primary care provider and emergency department aide as outpatient. Diet Continue normal diet: No Activity Full Activity/No Limits: No Acute Coronary Syndrome Inclusion Criteria At DC or during hospital stay patient has or had the following: ACS DIAGNOSIS No Discharge Core Measures Meds if any: Prescribed or Continued at Discharge Meds if any: NOT Prescribed or Continued at Discharge Congestive Heart Failure Inclusion Criteria At DC or during hospital stay patient has or had the following: CHF DIAGNOSIS No Discharge Core Measures Meds if any: Prescribed or Continued at Discharge Meds if any: NOT Prescribed or Continued at Discharge Cerebrovascular accident Inclusion Criteria At DC or during hospital stay patient has or had the following: CVA/TIA Diagnosis No Discharge Core Measures Meds if any: Prescribed or Continued at Discharge Meds if any: NOT Prescribed or Continued at Discharge Venous thromboembolism Inclusion Criteria VTE Diagnosis No VTE Type NONE VTE Confirmed by (Test) NONE Discharge Core Measures - Per Current guidelines, there needs to be overlap - treatment for the first 5 days of Warfarin therapy. - If discharged on Warfarin prior to 5 days of - overlap therapy, the patient will need to be - assessed for post discharge needs including - *Post discharge parental anticoagulation - *Warfarin and/or parental anticoagulation education - *Follow up date to check INR post discharge At least 5 days overlap therapy as Inpatient No Meds if any: Prescribed or Continued at Discharge Note: Overlap Therapy is Warfarin and Anticoagulant Meds if any: NOT Prescribed or Continued at Discharge
[2017-05-11] MEDS ORDERED: PREDNISONE10 M2 PO (13:58)
--- NOTE | 2017-05-11 14:10 | Discharge Summary ---
Hospital Course Course Consulting Request: Consulting Specialty: General Surgery Consulting Physician: Dr. Dawood Coon Reason for Consult: Temporal artery biopsy Allergies: Coded Allergies: No Known Allergies (04/16/17) Discharge Instructions General Discharge Information Code Status: Do Not Resucitate/Intubat Medications at Discharge Discharge Medications: Continue taking these medications: Omeprazole (Omeprazole) 20 MG CAPSULE. 1 Capsule ORAL DAILY Qty = 30 Benzonatate (Benzonatate) 100 MG CAPSULE 1-2 Capsule ORAL Every 4 hours Qty = 30 Melatonin/Pyridoxine (Melatonin 5 MG Tablet) 5 MG-1 MG TABLET Qty = 30 Ibuprofen (Ibuprofen) 600 MG TABLET 1 Tablet ORAL THREE TIMES DAILY Qty = 30 Instructions: with food Citalopram Hydrobromide (Citalopram HBr) 10 MG TABLET 1 Tablet ORAL DAILY Qty = 15 Start taking the following new medications: Quetiapine Fumarate (Quetiapine Fumarate) 25 MG TABLET 25 Milligram ORAL TWICE DAILY Qty = 60 No Refills Quetiapine Fumarate (Quetiapine Fumarate) 25 MG TABLET 12.5 Milligram ORAL AT BEDTIME Qty = 30 No Refills Memantine HCl (Namenda) 5 MG TABLET 5 Milligram ORAL DAILY Qty = 30 No Refills Bisacodyl (Bisacodyl) 5 MG TABLET.DR 5 Milligram ORAL DAILY NEEDED as needed for CONSTIPATION Qty = 30 No Refills Prednisone (Prednisone) 20 MG TABLET 10 Milligram ORAL DAILY Qty = 154 No Refills Instructions: PLEASE TAKE 6 PILLS-05/11/2017-05/23/2017 pLEASE TAKE 5 PILLS-05/24/2017-06/22/2017 pLEASE TAKE 4 PILLS-06/23/2017-07/23/2017 pLEASE TAKE 3 PILLS-07/24/2017-08/22/2017 pLEASE TAKE 2 PILLS-08/23/2017-09/22/2017 pLEASE TAKE 1 PILL-09/23/2017-10/22/2017 pLEASE TAKE HALF A PILL-10/24/2017-11/07/2017 Comments: PLEASE GET PRESCRIPTION FROM YOUR PRIMARY CARE PHYSICIAN FOR REST OF THE TAPER FOR GIANT CELL ARTERITIS Donepezil HCl (Aricept) 5 MG TABLET 1 Tablet ORAL Every night Qty = 30 No Refills
[2017-05-11 14:19] VITALS: BP 130/80
[2017-05-11 14:21] VITALS: BP 130/80
[2017-05-11] MEDS ORDERED: QUETIAPINE FUMA25 M1 PO ×4 (14:46→18:10)
[2017-05-11] MEDS ORDERED: BISACODYL5 M1 PO ×2 (15:22→18:10)
[2017-05-11] MEDS ORDERED: NAMENDA5 M1 PO ×2 (15:22→18:10)
[2017-05-11] MEDS ORDERED: ARICEPT5 M1 PO ×2 (15:26→18:10)
[2017-05-11] MEDS ORDERED: PREDNISONE20 M1 PO ×2 (15:33→18:10)
[2017-05-11 21:39] VITALS: BP 136/78
[2017-05-12 06:35] VITALS: BP 128/74
[2017-05-12] MEDS ORDERED: ARICEPT5 M1 PO (07:32)
[2017-05-12] MEDS ORDERED: BISACODYL5 M1 PO (07:32)
[2017-05-12] MEDS ORDERED: QUETIAPINE FUMA25 M1 PO ×2 (07:32)
[2017-05-12] MEDS ORDERED: NAMENDA5 M1 PO (07:32)
[2017-05-12] MEDS ORDERED: PREDNISONE20 M1 PO (07:32)
--- NOTE | 2017-05-12 08:23 | PN- Rheumatology ---
Subjective Subjective: Patient denies headaches or joint stiffness Objective Vital Signs and I&Os Vital Signs Date Time Temp Pulse Resp B/P B/P Pulse O2 O2 Flow FiO2 Mean Ox Delivery Rate 05/12 0635 98.0 95 18 128/74 94 Room Air 05/119 97.9 99 18 136/78 95 05/11 1421 97.5 100 20 130/80 96 Room Air Intake & Output 05/12 1600 05/12 0800 05/12 0000 05/11 1600 05/11 0800 05/11 0000 Intake Total 100 800 480 300 300 Output Total 250 Balance 100 550 480 300 300 Intake, IV 0 Intake, Oral 100 800 480 300 300 Number 1 0 Bowel Movements Output, Urine 250 Physical Exam: No fever and a healing scar over the biopsy site of his right temporal Current Medications: Current Medications Sig/Gloria Start time Last Medication Dose Route Stop Time Status Admin Artificial Tears 2 GTT TID PRN 05/07 1730 AC OPH Artificial Tears 2 GTT 4 TIMES/DAY PRN 05/03 2100 AC 05/08 OPH 1601 Benzonatate 100 MG TID 05/01 2200 AC 05/12 PO 0642 Bisacodyl 5 MG DAILY NEEDED PRN 05/06 014 AC 05/06 PO 0828 Cholecalciferol 1,000 IU DAILY 05/08 1000 AC 05/12 PO 0641 Citalopram 10 MG DAILY 05/01 1934 AC 05/12 Hydrobromide PO 0641 Heparin Sodium 5,000 UNIT Q8 05/02 2245 AC 05/12 (Porcine) SC 0638 Ibuprofen 600 MG TID PRN 05/07 0951 AC PO Lorazepam 0.5 MG ONCE ONE 05/12 06 DC 05/12 PO 05/12 0601 0646 Melatonin 5 MG AT BEDTIME 05/03 2200 AC 05/11 PO 2138 Memantine 5 MG DAILY 05/06 1810 AC 05/12 PO 0641 Omeprazole 40 MG DAILY AC 05/08 0700 AC 05/12 PO 0638 Polyethylene Glycol 17 GM DAILY NEEDED PRN 05/06 0145 AC 05/07 PO 0937 Prednisone 60 MG DAILY 05/12 1000 AC 05/12 PO 0641 Prednisone 60 MG DAILY 05/05 1000 DC 05/11 PO 0932 Quetiapine Fumarate 12.5 MG AT BEDTIME 05/080 AC 05/11 PO 2138 Quetiapine Fumarate 25 MG BID 05/06 1000 AC 05/12 PO 0642 Assessment/Plan Assessment: The patient's temporal artery biopsy has returned and shows no signs of inflammation. It shows the expected arthrosclerotic vascular changes for his age. He has been on 60 mg of prednisone since just prior to the biopsy. His sedimentation rate has fallen to 50 from 125. Thus overall the diagnosis of temporal arteritis has not been proven. The sedimentation rate is obviously a nonspecific test however in this case it is the only objective sign of inflammation. Plan: The patient will be discharged on prednisone but since the diagnosis has not been substantiated my recommendation would to be to taper his steroids more rapidly than if this was biopsy-proven temporal arteritis. I had originally suggested to the house after reduce his dosage by 10 mg every month. However I would reduce it every 2 weeks following sedimentation rate monthly. If there are any problems as an outpatient his primary care physician can contact me for advice.
== END 2017-05-12 07:37 | DRG 253 ==
LOC: ERH 16:28 → 2NA 16:58 → ERHI 16:58 → ENRESERV 18:16 → ENTRNSPT 19:00 → EDTRNSPT 19:10 → EDTRNSPTSTS 19:10 → 2NA 19:21 → CMPTRNSPT 19:31 → 2NA 05-03 18:43 → ENTRNSPT 05-04 14:38 → EDTRNSPTSTS 05-04 14:55 → EDTRNSPT 05-04 14:55 → CMPTRNSPT 05-04 15:18 → 2NA 05-08 17:47 → ENPENDDIS 05-12 07:38 → ENTRNSPT 05-12 07:39 → CMPTRNSPT 05-12 08:34
PROVIDERS: Internal Medicine; Physician Assistant Medical; Radiology Vascular & Interventional Radiology; Student in an Organized Health Care Education/Training Program
PROC: 03BS0ZX Excision of Right Temporal Artery, Open Approach, Diagnostic (ICD-10-PCS; principal; 2017-05-04)
DX: I70.8 Atherosclerosis of other arteries (principal); F05 Delirium due to known physiological condition; F03.91 Unspecified dementia, unspecified severity, with behavioral disturbance; D64.9 Anemia, unspecified; F41.9 Anxiety disorder, unspecified; K21.9 Gastro-esophageal reflux disease without esophagitis; M27.8 Other specified diseases of jaws; M35.3 Polymyalgia rheumatica; H54.61 Unqualified visual loss, right eye, normal vision left eye; Z96.659 Presence of unspecified artificial knee joint; Z87.891 Personal history of nicotine dependence; H26.9 Unspecified cataract; Z66 Do not resuscitate; M19.90 Unspecified osteoarthritis, unspecified site; Z79.52 Long term (current) use of systemic steroids; R45.1 Restlessness and agitation
CPT/HCPCS: 2NAP; 2NASP; 36592; 81003; 82436; 93005; 93010; J1040; J1630; J1644; J3490; J7060